=== PATIENT | male | born 1975 | race Caucasian/White ===

== ENCOUNTER 2017-05-07 18:09 | Emergency (ER) | payer OTHER ==
[2017-05-07 18:24] VITALS: BP 156/94; PULSE 75; RESP 18; TEMP 99; O2SAT 96
--- NOTE | 2017-05-07 20:04 | C.PDOC ---
History Of Present Illness 41 year old male presents to the ED with complaints of right foot swelling for one week. Patient notes pain with ambulation and history of fractures to the right foot. He states he took off his cast at 2 months opposed to waiting 6 months as he was instructed. Patient denies changes in sensation, fever, or recent trauma. Time Seen by Provider: 05/07/17 18:34 Chief Complaint (Nursing): Lower Extremity Problem/Injury History Per: Patient History/Exam Limitations: no limitations Onset/Duration Of Symptoms: Intermittent Episodes, Persistent (1 week ) Current Symptoms Are (Timing): Still Present Recent travel outside of the [place]: No Additional History Per: Prior Records Past Medical History Reviewed: Historical Data, Nursing Documentation, Vital Signs Vital Signs: Last Vital Signs Temp 99 F 05/07/17 18:18 Pulse 75 05/07/17 18:18 Resp 18 05/07/17 18:18 BP 156/94 H 05/07/17 18:18 Pulse Ox 96 05/07/17 22:08 - Medical History PMH: Asthma, Atrial Fibrillation, Diabetes, HTN Family History: States: Unknown Family Hx - Social History Hx Tobacco Use: No Hx Alcohol Use: No Hx Substance Use: No - Immunization History Hx Tetanus Toxoid Vaccination: No Hx Influenza Vaccination: No Hx Pneumococcal Vaccination: No Review Of Systems Constitutional: Negative for: Fever, Chills Cardiovascular: Negative for: Chest Pain Respiratory: Negative for: Shortness of Breath Gastrointestinal: Negative for: Nausea Musculoskeletal: Positive for: Foot Pain (right foot pain ) Neurological: Negative for: Weakness, Numbness Physical Exam - Physical Exam Appears: Non-toxic, No Acute Distress Skin: Warm, Dry Head: Atraumatic Eye(s): bilateral: Normal Inspection, EOMI Oral Mucosa: Moist Neck: Supple Chest: Symmetrical Respiratory: No Accessory Muscle Use Extremity: Normal ROM, Tenderness (diffuse tenderness of the right foot, no erythema ), No Calf Tenderness, Capillary Refill (good capillar refill, less than 2 seconds ), Swelling (diffuse swelling of the right foot ) Pulses: Left Dorsalis Pedis: Normal, Right Dorsalis Pedis: Normal Neurological/Psych: Oriented x3, Normal Speech, Normal Cognition, Normal Motor, Normal Sensation Gait: Steady ED Course And Treatment O2 Sat by Pulse Oximetry: 96 (room air ) - Other Rad Right foot X-Ray X-Ray: Interpreted by Me, Viewed By Me Interpretation: No fracture or dislocation. 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 Patient's girlfriend notes patient will be seen by Dr. Kellogg tomorrow. Patient was instructed to return to ED if symptoms persist or worsen. Disposition - Disposition Disposition: HOME/ ROUTINE Disposition Time: 20:03 Condition: STABLE Additional Instructions: Follow up with primary medical doctor in 1-3 days without fail for further evaluation. Take medications as prescribed. Return to the emergency department at any time if symptoms persist or worsen. Prescriptions: Naproxen [Naprosyn] 1 tab PO BID PRN #20 tab PRN Reason: Pain Instructions: Foot Sprain (ED) Forms: [employer] (Setswana) - Clinical Impression Clinical Impression: Right foot strain - Scribe Statement The provider has reviewed the documentation as recorded by the Scribalejo Ventura All medical record entries made by the Scribe were at my direction and personally dictated by me. I have reviewed the chart and agree that the record accurately reflects my personal performance of the history, physical exam, medical decision making, and the department course for this patient. I have also personally directed, reviewed, and agree with the discharge instructions and disposition.
--- NOTE | 2017-05-08 08:24 | RAD ---
PROCEDURE: Right Foot Radiographs. HISTORY: pain COMPARISON: None. FINDINGS: BONES: Normal. No fracture. JOINTS: Normal. SOFT TISSUES: Ossification of insertion of the Achilles tendon at the posterior calcaneus is noted. OTHER FINDINGS: Moderate plantar calcaneal spur. IMPRESSION: No acute fracture or dislocation.
== END 2017-05-07 20:31 | disposition home or self-care (01) ==
LOC: C.ER 18:09
DX: S96.911A Strain of unspecified muscle and tendon at ankle and foot level, right foot, initial encounter (principal); X58.XXXA Exposure to other specified factors, initial encounter
CPT/HCPCS: 29515; 73630; 96372; 99285; J1885

== ENCOUNTER 2017-05-26 22:06 | Emergency (ER) | payer OTHER ==
[2017-05-26 22:27] VITALS: TEMP 99.7
[2017-05-26] MEDS ORDERED: Aspirin 325 mg EC Tablets PO STA (22:33)
[2017-05-26 23:13] LABS: BASO # 0.1 K/uL (0.0-0.2); BASO % 0.7 % (0.0-2.0); EOS # 0.1 K/uL (0.0-0.7); HEMATOCRIT 42.6 % (35.0-51.0); LYMPH # 3.3 K/uL (1.0-4.3); LYMPH % 35.1 % (20.0-40.0); MEAN CELL VOLUME 81.5 fL (80.0-94.0); MEAN CORPUSCULAR HEMOGLOBIN 27.2 pg (27.0-31.0); MEAN CORPUSCULAR HGB CONC 33.4 g/dL (33.0-37.0); MONO # 0.7 K/uL (0.0-0.8); MONO % 7.9 % (0.0-10.0); RED CELL DISTRIBUTION WIDTH 14.6 % (11.5-14.5); WHITE BLOOD COUNT 9.5 K/uL (4.8-10.8)
[2017-05-26 23:23] LABS: CHLORIDE 105 mmol/L (98-107); SODIUM 144 mmol/L (132-148)
[2017-05-26] MEDS ORDERED: Aspirin 325 mg EC Tablets PO ONE (23:23)
[2017-05-26 23:24] LABS: POTASSIUM 3.4 mmol/L (3.6-5.2)
[2017-05-26 23:25] LABS: GFR AFRICAN-AMERICAN > 60
[2017-05-26 23:26] LABS: ALB/GLOB RATIO 1.1 (1.0-2.1); ALKALINE PHOSPHATASE 91 U/L (38-126); ALT/SGPT 24 U/L (21-72); AST/SGOT 21 U/L (17-59); BILIRUBIN,TOTAL 0.8 mg/dL (0.2-1.3); BLOOD UREA NITROGEN 14 mg/dL (9-20); CARBON DIOXIDE 25 mmol/L (22-30); GLUCOSE,RANDOM 120 mg/dL (75-110); TOTAL PROTEIN 7.3 g/dL (6.3-8.3)
[2017-05-26 23:27] LABS: CALCIUM 9.2 mg/dl (8.6-10.4)
--- NOTE | 2017-05-26 23:52 | C.PDOC ---
History Of Present Illness Pt c/o left upper chest/left shoulder region pain that started after moving furniture yesterday. Time Seen by Provider: 05/26/17 22:18 Chief Complaint (Nursing): Chest Pain History Per: Patient, Family Onset/Duration Of Symptoms: Days (1) Current Symptoms Are (Timing): Still Present Context: Other (After moving furniture) Severity: Moderate Quality: "Pain" Modifying Factors: Other Indicated Below Exacerbating Factors: Turning, Movement Additional History Per: Prior Records Past Medical History Reviewed: Historical Data, Nursing Documentation, Vital Signs Vital Signs: Last Vital Signs Temp 99.7 F H 05/26/17 22:26 Pulse 79 05/26/17 22:26 Resp 18 05/26/17 22:26 BP 161/90 H 05/26/17 22:26 Pulse Ox 98 05/26/17 22:26 - Medical History PMH: Asthma, Atrial Fibrillation, Diabetes, HTN, Hypercholesterolemia Surgical History: Pacemaker (AICD) Family History: States: Unknown Family Hx - Social History Hx Tobacco Use: No Hx Alcohol Use: No Hx Substance Use: No - Immunization History Hx Tetanus Toxoid Vaccination: No Hx Influenza Vaccination: No Hx Pneumococcal Vaccination: No Review Of Systems Except As Marked, All Systems Reviewed And Found Negative. Constitutional: Negative for: Fever, Weakness Cardiovascular: Negative for: Palpitations, Light Headedness Respiratory: Negative for: Hemoptysis Gastrointestinal: Negative for: Vomiting, Abdominal Pain Musculoskeletal: Positive for: Shoulder Pain (left), Arm Pain (left). Negative for: Neck Pain, Back Pain Skin: Negative for: Rash Neurological: Negative for: Weakness, Numbness Physical Exam - Physical Exam Appears: Non-toxic, No Acute Distress Skin: Normal Color, Warm, Dry, No Rash Head: Atraumatic, Normacephalic Eye(s): bilateral: Normal Inspection, PERRL, EOMI Neck: Normal ROM, Supple Chest: No Deformity, Tenderness (left upper chest wall), No Ecchymosis, No Subcutaneous Emphysema Cardiovascular: Rhythm Regular Respiratory: Normal Breath Sounds, No Accessory Muscle Use Gastrointestinal/Abdominal: Soft, No Tenderness Back: Normal Inspection, No CVA Tenderness Extremity: Normal ROM, Tenderness (left shoulder region), No Deformity, No Swelling Extremity: Bilateral: Normal Color And Temperature Pulses: Left Radial: Normal Neurological/Psych: Oriented x3, Normal Motor, Normal Sensation ED Course And Treatment - Laboratory Results Result Diagrams: 05/26/17 23:09 05/26/17 23:09 Lab Interpretation: No Acute Changes ECG: Interpreted By Me, Viewed By Me ECG Rhythm: Sinus Rhythm ECG Interpretation: No Acute Changes Rate From EC O2 Sat by Pulse Oximetry: 98 Pulse Ox Interpretation: Normal - Radiology CXR: Interpreted by Me, Viewed By Me CXR Interpretation: Yes: No Acute Disease, Other (AICD in place) Progress Note: Pt feels much better and wants to go home. Reassessment Condition: Improved Progress - Interventions Interventions:: Observation - Medications Administered Oral: Acetaminophen, Aspirin - Data Reviewed Data Reviewed: Lab, Diagnostic imaging, EKG, Old records - Patient Status Patient status: Mostly improved - Continuity of Care Discussed patient case with:: Patient, Family-HIPPA compliant, ED Nurse - Patient Plan Patient Plan: Discharge, F/U with PCP, Continue present meds Disposition Counseled Patient/Family Regarding: Studies Performed, Diagnosis, Need For Followup, Rx Given - Disposition Referrals: Nick Neal MD [Medical Doctor] - Le Crenshaw MD [Staff Provider] - Disposition: HOME/ ROUTINE Disposition Time: 23:54 Condition: IMPROVED Additional Instructions: Follow up with your doctor this week. Return to the ER if you develop dizziness , shortness of breath, nausea, cold sweats, worsening of symptoms or if you have any other concerns. Prescriptions: Acetaminophen [Tylenol Extra Strength] 2 tab PO Q6 PRN #30 tablet PRN Reason: Pain, Moderate (4-7) Instructions: Chest Wall Pain (ED) Forms: [employer] (Afghan) Print Language: GEORGIAN - Clinical Impression Clinical Impression: Pain of left shoulder region
[2017-05-27 00:03] VITALS: BP 140/80; PULSE 70; RESP 14; O2SAT 97
--- NOTE | 2017-05-27 12:21 | RAD ---
HISTORY: Left upper chest/shoulder pain COMPARISON: Chest x-ray portion of obstructive series performed 12/04/15 TECHNIQUE: Chest, one view. FINDINGS: Examination limited by habitus and hypoinflation. LUNGS: No focal consolidation. Please note that chest x-ray has limited sensitivity for the detection of pulmonary masses. PLEURA: No significant pleural effusion identified. No definite pneumothorax . CARDIOVASCULAR: Single lead left-sided AICD. Cardiomegaly. OSSEOUS STRUCTURES: Mild degenerative changes. VISUALIZED UPPER ABDOMEN: Unremarkable. OTHER FINDINGS: None. IMPRESSION: Single lead left-sided AICD. Cardiomegaly.
--- NOTE | 2017-06-04 18:59 | CARD ---
APPROVED REPORT EKG Measurement Heart [id number] <Conclusion> Normal sinus rhythm Normal ECG
== END 2017-05-27 00:02 | disposition home or self-care (01) ==
LOC: C.ER 22:06
DX: M25.512 Pain in left shoulder (principal)

== ENCOUNTER 2017-09-16 18:27 | Emergency (ER) | payer OTHER ==
[2017-09-16 19:57] LABS: BASO # 0.1 K/uL (0.0-0.2); BASO % 0.6 % (0.0-2.0); EOS # 0.1 K/uL (0.0-0.7); EOS % 1.4 % (0.0-4.0); LYMPH # 3.2 K/uL (1.0-4.3); LYMPH % 32.6 % (20.0-40.0); MEAN CORPUSCULAR HEMOGLOBIN 27.3 pg (27.0-31.0); MEAN CORPUSCULAR HGB CONC 34.1 g/dL (33.0-37.0); MEAN PLATELET VOLUME 8.7 fL (7.2-11.7); MONO # 0.7 K/uL (0.0-0.8); MONO % 6.7 % (0.0-10.0); NRBC % 0.1 % (0.0-2.0); RED CELL DISTRIBUTION WIDTH 14.5 % (11.5-14.5); WHITE BLOOD COUNT 9.8 K/uL (4.8-10.8)
[2017-09-16] MEDS ORDERED: Sodium Chloride 0.9% 1,000 ML IV ONE (19:58)
[2017-09-16] MEDS ORDERED: Sodium Chloride 0.9% 1,000 ML ONE (20:07)
[2017-09-16 20:09] LABS: ALB/GLOB RATIO 1.3 (1.0-2.1); ALKALINE PHOSPHATASE 91 U/L (38-126); ALT/SGPT 23 U/L (21-72); AST/SGOT 22 U/L (17-59); BILIRUBIN,TOTAL 1.2 mg/dL (0.2-1.3); BLOOD UREA NITROGEN 15 mg/dL (9-20); CARBON DIOXIDE 28 mmol/L (22-30); CHLORIDE 96 mmol/L (98-107); GFR AFRICAN-AMERICAN > 60; GLUCOSE,RANDOM 115 mg/dL (75-110); POTASSIUM 3.9 mmol/L (3.6-5.2); SODIUM 134 mmol/L (132-148)
[2017-09-16 20:26] LABS: ALCOHOL SERUM < 10 mg/dl (0-10)
[2017-09-16 20:40] LABS: RBC URINE < 1 /hpf (0-3); URINE BACTERIA RARE (<OCC); URINE BILIRUBIN NEGATIVE (NEGATIVE); URINE BLOOD NEGATIVE (NEGATIVE); URINE COLOR Yellow (YELLOW); URINE GLUCOSE (UA) NORMAL (Normal); URINE HYALINE CAST 0-2 /lpf (0-2); URINE KETONE NEGATIVE (NEGATIVE); URINE LEUKOCYTE ESTERASE NEG Leu/uL (Negative); URINE PROTEIN NEGATIVE (NEGATIVE); WBC URINE < 1 /hpf (0-5)
--- NOTE | 2017-09-16 21:04 | C.PDOC ---
History Of Present Illness Patient is a 42 y/o mentally disabled male who presents to the ED with complaints of minor dizziness and chronic crampy abdominal discomfort. Patient admits to not eating much, adding he takes DM medication on an empty stomach. Patient denies checking blood pressure at home. No other physical complaints at this time. Time Seen by Provider: 09/16/17 19:21 Chief Complaint (Nursing): Abdominal Pain History Per: Patient History/Exam Limitations: no limitations Onset/Duration Of Symptoms: Hrs Current Symptoms Are (Timing): Still Present Location Of Pain/Discomfort: Diffuse Quality Of Discomfort: Cramping Recent travel outside of the [place]: No Past Medical History Reviewed: Historical Data, Nursing Documentation, Vital Signs Vital Signs: Last Vital Signs Temp 98.3 F 09/16/17 21:20 Pulse 76 09/16/17 21:20 Resp 20 09/16/17 21:20 BP 160/90 H 09/16/17 21:20 Pulse Ox 97 09/16/17 21:20 - Medical History PMH: Asthma, Atrial Fibrillation, Diabetes, HTN, Hypercholesterolemia Surgical History: Pacemaker (AICD) Family History: States: Unknown Family Hx - Social History Hx Tobacco Use: No Hx Alcohol Use: No Hx Substance Use: No - Immunization History Hx Tetanus Toxoid Vaccination: No Hx Influenza Vaccination: No Hx Pneumococcal Vaccination: No Review Of Systems Gastrointestinal: Positive for: Abdominal Pain (cramping) Neurological: Positive for: Altered Mental Status (mentally disabled), Dizziness (minor) Physical Exam - Physical Exam Appears: Other (obese, flat affect) Oral Mucosa: Moist Chest: Symmetrical Cardiovascular: Rhythm Regular, No Murmur Respiratory: Normal Breath Sounds, No Rales, No Rhonchi, No Wheezing Gastrointestinal/Abdominal: Soft, No Tenderness, Other (obese) Neurological/Psych: Slow To Respond With Command (and questions) ED Course And Treatment - Laboratory Results Result Diagrams: 09/16/17 19:54 09/16/17 19:54 Lab Interpretation: Normal (normal glu) ECG: Interpreted By Me ECG Rhythm: Sinus Rhythm ECG Interpretation: Normal Rate From EC O2 Sat by Pulse Oximetry: 96 (room air) Pulse Ox Interpretation: Normal - Radiology CXR: Interpreted by Me CXR Interpretation: Yes: No Acute Disease - Other Rad abd x 2 X-Ray: Interpreted by Me (normal stool/gas pattern) Progress Note: pepcid, meclizine, IVF- no insulin as glu wnl. Obstructive series XR ordered. Reevaluation Time: 21:06 Reassessment Condition: Improved Medical Decision Making Medical Decision Making: chronic constipation pt taking Metformin without eating, educated how this will make him feel dizzy/ sick and to always eat with DM meds diet and exercise educated. Disposition Doctor Will See Patient In The: Office Counseled Patient/Family Regarding: Studies Performed, Diagnosis - Disposition Referrals: Melvina Dennis MD [Medical Doctor] - Disposition: HOME/ ROUTINE Disposition Time: 21:08 Condition: GOOD Additional Instructions: always take your diabetes meds with food Check your finger-stick before breakfast and dinner and write it down in the little book. Pepcid 20 mg @ night to help prevent gastritis Follow-up with your PMD as needed. Prescriptions: Famotidine [Pepcid] 20 mg PO HS #30 tab Instructions: Gas and Bloating (ED), Dizziness (ED) Forms: [employer] (Georgian) - Clinical Impression Clinical Impression: Abdominal discomfort, Dizziness - Scribe Statement The provider has reviewed the documentation as recorded by the Scribe Rosa Kumar All medical record entries made by the Scribe were at my direction and personally dictated by me. I have reviewed the chart and agree that the record accurately reflects my personal performance of the history, physical exam, medical decision making, and the department course for this patient. I have also personally directed, reviewed, and agree with the discharge instructions and disposition.
[2017-09-16 21:21] VITALS: BP 160/90; PULSE 76; RESP 20; TEMP 98.3
[2017-09-16 23:10] VITALS: O2SAT 96
--- NOTE | 2017-09-17 10:00 | RAD ---
PROCEDURE: Radiographs of the chest and abdomen (obstructive series) HISTORY: abd pain COMPARISON: 12/04/2015 obstructive series TECHNIQUE: AP radiograph of the chest, with upright and supine radiographs of the abdomen. FINDINGS: CHEST: Lungs: Clear. Cardiovascular: Mild cardiomegaly appears Position/ configuration of pacemaker congestion. Pleura: No pleural fluid. No pneumothorax. Other findings: None. ABDOMEN AND PELVIS: Bowel: The prior dilated sigmoid loop there is no longer seen as such. A redundant rectosigmoid colon loops is also a consideration. Left and right stool retention suggested. . No evidence of mechanical obstruction. Free air: None. Bones: Bilateral L4-5 and L5-S1 mild arthrosis. Bilateral mild sclerotic SI joint arthrosis. Bilateral superolateral hip joint space narrowing and left greater than right. Probable bone island projecting over the left inferior medial femoral [id number] Other findings: None. IMPRESSION: No pulmonary infiltrate. Mild cardiomegaly with pacemaker No evidence of mechanical bowel obstruction. Left and right stool retention -can be seen with a clinical constipation.
== END 2017-09-16 21:22 | disposition home or self-care (01) ==
LOC: C.ER 18:27
DX: R42 Dizziness and giddiness (principal); R10.9 Unspecified abdominal pain; E11.9 Type 2 diabetes mellitus without complications; E78.00 Pure hypercholesterolemia, unspecified; I10 Essential (primary) hypertension; I48.91 Unspecified atrial fibrillation
CPT/HCPCS: 74022; 80053; 80320; 80324; 80345; 80346; 80349; 80353; 80358; 80361; 81001; 83690; 83992; 84484; 85025; 96361; 96374; 99284; J7040

== ENCOUNTER 2017-09-28 14:47 | Emergency (ER) | payer OTHER ==
[2017-09-28 16:34] VITALS: BP 162/98; PULSE 83; RESP 20; TEMP 97.9
--- NOTE | 2017-09-28 16:36 | C.PDOC ---
History Of Present Illness 42 yo male c/o right knee pain since 09/20/17 when he bumped it against a metal pole. Pt note pain worse with movement. No change in sensation. No calf pain, no leg swelling, no SOB. Pt has a h/o elevated bP and notes he is complaint with the medication. Time Seen by Provider: 09/28/17 15:34 Chief Complaint (Nursing): Lower Extremity Problem/Injury History Per: Patient History/Exam Limitations: no limitations Onset/Duration Of Symptoms: Days Current Symptoms Are (Timing): Still Present Past Medical History Vital Signs: Last Vital Signs Temp 98.9 F 09/28/17 14:52 Pulse 90 09/28/17 14:52 Resp 18 09/28/17 14:52 BP 192/127 H 09/28/17 14:52 Pulse Ox 96 09/28/17 14:52 - Medical History PMH: Asthma, Atrial Fibrillation, Diabetes, HTN, Hypercholesterolemia Surgical History: Pacemaker (AICD) Family History: States: Unknown Family Hx - Social History Hx Tobacco Use: No Hx Alcohol Use: No Hx Substance Use: No - Immunization History Hx Tetanus Toxoid Vaccination: No Hx Influenza Vaccination: No Hx Pneumococcal Vaccination: No Review Of Systems Constitutional: Negative for: Fever Respiratory: Negative for: Shortness of Breath Neurological: Negative for: Weakness, Numbness Physical Exam - Physical Exam Appears: Well, Non-toxic, No Acute Distress Skin: Normal Color, Warm, Dry Head: Atraumatic, Normacephalic Eye(s): bilateral: Normal Inspection, EOMI Nose: Normal Oral Mucosa: Moist Neck: Normal, Normal ROM, Supple Chest: Symmetrical Cardiovascular: Rhythm Regular Respiratory: Normal Breath Sounds Gastrointestinal/Abdominal: Normal Exam Back: Normal Inspection Extremity: Normal ROM, Tenderness (diffuse anterior knee tendenress), No Calf Tenderness, Capillary Refill (<2 sec), Swelling Extremity: Bilateral: Atraumatic, Normal Color And Temperature, Normal ROM Pulses: Left Dorsalis Pedis: Normal, Right Dorsalis Pedis: Normal Neurological/Psych: Oriented x3, Normal Speech, Normal Motor, Normal Sensation Gait: With Assistance (pt walks with cane, notes he wsa using to prior ti injury ) ED Course And Treatment O2 Sat by Pulse Oximetry: 96 - Other Rad Knee XR X-Ray: Interpreted by Me, Viewed By Me Interpretation: no fx or dislocated Progress Note: Pt is asymptomatic regarding elevated BP, no chest pain, sob, headache ,dizziness. Instructed to follow up with PMD regarding elevated BP for possible medication adjustment. Instructed to follo wup with ortho in 1-2 days for re-evaluation. Disposition - Disposition Referrals: Baldev Lutz MD [Staff Provider] - Disposition: HOME/ ROUTINE Disposition Time: 16:42 Condition: STABLE Instructions: Knee Sprain (ED)
[2017-09-28 16:37] VITALS: O2SAT 96
--- NOTE | 2017-09-28 17:30 | RAD ---
PROCEDURE: Left Knee Radiographs. HISTORY: Pain. COMPARISON: None. FINDINGS: BONES: Normal. No fracture. JOINTS: Normal. No osteoarthritis. JOINT EFFUSION: Possible small suprapatellar joint effusion P OTHER FINDINGS: None. IMPRESSION: No evidence of acute fracture or dislocation.
== END 2017-09-28 16:52 | disposition home or self-care (01) ==
LOC: C.ER 14:47
DX: S80.01XA Contusion of right knee, initial encounter (principal); W22.8XXA Striking against or struck by other objects, initial encounter; E11.9 Type 2 diabetes mellitus without complications; E78.00 Pure hypercholesterolemia, unspecified; I10 Essential (primary) hypertension; I48.91 Unspecified atrial fibrillation
CPT/HCPCS: 73562; 96372; 99284; J1885

== ENCOUNTER 2017-11-26 11:39 | Emergency (ER) | payer OTHER ==
[2017-11-26 12:09] VITALS: BP 155/101; PULSE 82; RESP 16; TEMP 97.3; O2SAT 97
--- NOTE | 2017-11-26 12:55 | C.PDOC ---
History Of Present Illness 42 y/o male with htn, dm, aicd, c/o left knee pain since last Sun after banging it against something. pt taking 400 mg advil bid with no improvement. pt reports that he has chronic pain in this knee and hasn't follow up with orthopedics. no numbness or tingling. Time Seen by Provider: 11/26/17 12:36 Chief Complaint (Nursing): Lower Extremity Problem/Injury Past Medical History Vital Signs: Last Vital Signs Temp 97.3 F L 11/26/17 12:06 Pulse 82 11/26/17 12:06 Resp 16 11/26/17 12:06 BP 155/101 H 11/26/17 12:06 Pulse Ox 97 11/26/17 13:45 - Medical History PMH: Asthma, Atrial Fibrillation, Diabetes, HTN, Hypercholesterolemia Surgical History: Pacemaker (AICD) Family History: States: Unknown Family Hx - Social History Hx Tobacco Use: No Hx Alcohol Use: No Hx Substance Use: No - Immunization History Hx Tetanus Toxoid Vaccination: No Hx Influenza Vaccination: No Hx Pneumococcal Vaccination: No Physical Exam - Physical Exam Appears: Non-toxic, No Acute Distress Skin: Warm, Dry Extremity: Tenderness (left lateral proximal knee, painful rom. ), No Pedal Edema, No Calf Tenderness Pulses: Left Dorsalis Pedis: Normal Neurological/Psych: Oriented x3, Normal Speech, Normal Cognition, Normal Motor, Normal Sensation ED Course And Treatment O2 Sat by Pulse Oximetry: 97 - Other Rad left knee X-Ray: Read By Radiologist Medical Decision Making Medical Decision Making: hx chronic knee pain with new contusion;l give motrin, xray neg. pt has knee support. d/c with contusion. f/u orthopedics. Disposition Counseled Patient/Family Regarding: Studies Performed, Diagnosis, Need For Followup, Rx Given - Disposition Referrals: Fazal Mohamud III, MD [Staff Provider] - Disposition: HOME/ ROUTINE Disposition Time: 13:41 Condition: GOOD Additional Instructions: Por favor, tome ibuprofeno o Tylenol para el dolor. Compresas fras bebeto 15 minutos a veces, 4 veces al da. Use rodillera para apoyo. Por favor cecilia un seguimiento en ortopedia con el Dr. Mohamud o el mdico ortopdico de carbajal elecci n. Please take ibuprofen or Tylenol for pain. Cold compresses for 15 minutes at a times, 4 times a day. Wear knee brace for support. Please follow up in orthopedics with Dr Mohamud or the orthpedic doctor of your choice Prescriptions: Acetaminophen [Tylenol 325mg tab] 650 mg PO Q4 #50 tab Forms: [facility] [employer] [facility] Malawian, [employer] (Malawian) Print Language: SERBIAN - Clinical Impression Clinical Impression: Left knee injury
--- NOTE | 2017-11-26 13:26 | RAD ---
PROCEDURE: Left Knee Radiographs. HISTORY: Hit COMPARISON: Left knee radiographs performed 09/28/17 FINDINGS: BONES: No acute displaced fracture. Degenerative changes including prominent superior and inferior patellar enthesophyte. JOINTS: No dislocation. JOINT EFFUSION: No significant joint effusion. OTHER FINDINGS: None. IMPRESSION: No acute displaced fracture, dislocation, or significant joint effusion identified. If symptoms persist, or if there is continued clinical concern, x-ray follow-up in 7-10 days should be considered.
== END 2017-11-26 13:59 | disposition home or self-care (01) ==
LOC: C.ER 11:39
DX: S89.92XA Unspecified injury of left lower leg, initial encounter (principal); W22.8XXA Striking against or struck by other objects, initial encounter

== ENCOUNTER 2017-12-16 15:20 | Emergency (ER) | payer OTHER ==
[2017-12-16 16:59] LABS: WHITE BLOOD COUNT 9.1 K/uL (4.8-10.8)
[2017-12-16 17:02] LABS: BASO % 0.4 % (0.0-2.0); EOS # 0.1 K/uL (0.0-0.7); EOS % 1.2 % (0.0-4.0); LYMPH # 2.7 K/uL (1.0-4.3); LYMPH % 29.7 % (20.0-40.0); MEAN CELL VOLUME 80.7 fL (80.0-94.0); MEAN CORPUSCULAR HEMOGLOBIN 27.4 pg (27.0-31.0); MEAN PLATELET VOLUME 8.8 fL (7.2-11.7); MONO # 0.7 K/uL (0.0-0.8); MONO % 7.1 % (0.0-10.0); NEUT # 5.6 K/uL (1.8-7.0); NEUT % 61.6 % (50.0-75.0); NRBC % 0.2 % (0.0-2.0); RBC 5.82 Mil/uL (4.40-5.90); RED CELL DISTRIBUTION WIDTH 14.1 % (11.5-14.5)
[2017-12-16 17:20] LABS: ALBUMIN 4.4 g/dL (3.5-5.0); ALT/SGPT 28 U/L (21-72); AST/SGOT 29 U/L (17-59); BLOOD UREA NITROGEN 16 mg/dL (9-20); CALCIUM 9.4 mg/dl (8.6-10.4); GFR AFRICAN-AMERICAN > 60; GFR NON-AFRICAN AMERICAN > 60
[2017-12-16 17:32] LABS: B-TYPE NATRIURETIC PEPTIDE 207 pg/mL (0-450)
--- NOTE | 2017-12-16 17:34 | RAD ---
PROCEDURE: CHEST RADIOGRAPH, 1 VIEW HISTORY: chest pain COMPARISON: 05/26/2017 FINDINGS: LUNGS: Clear. PLEURA: No pneumothorax or pleural fluid seen. CARDIOVASCULAR: Normal heart size. Permanent pacemaker. OSSEOUS STRUCTURES: No significant abnormalities. VISUALIZED UPPER ABDOMEN: Normal. OTHER FINDINGS: None. IMPRESSION: No active disease.
[2017-12-16 17:55] VITALS: BP 119/76; PULSE 80; RESP 18; TEMP 98; O2SAT 100
--- NOTE | 2017-12-16 18:25 | C.PDOC ---
History Of Present Illness 42-year-old male, PMHx includes cardiomyopathy and AICD placement, presents to the emergency department with complaints of five-day duration of intermittent pain to the left upper chest wall, over AICD device. Initially, patient states pain felt like "fleeting jolts" but is now described as an "achy" sensation. Denies nausea/vomiting, diarrhea, fevers, chills, shortness of breath, dizziness , ro any other associated symptoms. No other complaints at this time. Time Seen by Provider: 12/16/17 15:50 Chief Complaint (Nursing): Chest Pain History Per: Patient History/Exam Limitations: no limitations Onset/Duration Of Symptoms: Days Current Symptoms Are (Timing): Still Present Past Medical History Reviewed: Historical Data, Nursing Documentation, Vital Signs Vital Signs: Last Vital Signs Temp 98 F 12/16/17 17:53 Pulse 80 12/16/17 17:53 Resp 18 12/16/17 17:53 BP 119/76 12/16/17 17:53 Pulse Ox 100 12/16/17 18:38 - Medical History PMH: Asthma, Atrial Fibrillation, CHF, Diabetes, HTN, Hypercholesterolemia Surgical History: Pacemaker (AICD) Family History: States: No Known Family Hx - Social History Hx Tobacco Use: No Hx Alcohol Use: No Hx Substance Use: No - Immunization History Hx Tetanus Toxoid Vaccination: No Hx Influenza Vaccination: Yes Hx Pneumococcal Vaccination: No Review Of Systems Constitutional: Negative for: Fever, Chills Cardiovascular: Positive for: Chest Pain. Negative for: Palpitations, Edema, Light Headedness Respiratory: Negative for: Cough, Shortness of Breath Gastrointestinal: Negative for: Nausea, Vomiting Skin: Negative for: Rash Neurological: Negative for: Weakness, Numbness, Headache, Dizziness Physical Exam - Physical Exam Appears: Non-toxic, No Acute Distress Skin: Normal Color, Warm, Dry, No Rash Head: Normacephalic Eye(s): bilateral: PERRL Nose: Normal Oral Mucosa: Moist Lips: Normal Appearing Neck: Normal ROM Chest: Symmetrical Cardiovascular: Rhythm Regular, No Murmur Respiratory: Normal Breath Sounds, No Accessory Muscle Use Gastrointestinal/Abdominal: Soft, No Tenderness Extremity: Normal ROM, No Deformity, No Swelling Neurological/Psych: Oriented x3, Normal Speech ED Course And Treatment - Laboratory Results Result Diagrams: 12/16/17 16:54 12/16/17 16:54 O2 Sat by Pulse Oximetry: 100 Medical Decision Making Medical Decision Making: Impression 42y/o M comes in w? left chest pain x5 days over AICD device. Plan: * EKG * Bloodwork * Chest X-Ray * Reassess and Disposition EKG Interpreted/viewed by ED physician Rate 75bpm Rhythm NSR Intepret No ST elevations/depressions. Normal intervals/axis Case was discussed with Dr Engle, states he will admit patient to his service. Disposition Discussed With Dr.: Moisés Engle Jr. - Disposition Disposition: ELOPEMENT - ER ONLY Disposition Time: 18:24 Condition: GUARDED Forms: [employer] (Indian) - Clinical Impression Clinical Impression: Chest pain, ICD (implantable cardioverter-defibrillator) malfunction Decision To Admit - Pt Status Changed To: Hospital Disposition Of: Observation - . Bed Request Type: Telemetry Admitting Physician: Moisés Engle Jr. Patient Diagnosis: Chest pain, ICD (implantable cardioverter-defibrillator) malfunction
--- NOTE | 2017-12-16 22:43 | CP.PCM.PN ---
<Karin Porter - Last Filed: 12/16/17 22:42> Subjective - Date & Time of Evaluation Date of Evaluation: 12/16/17 Time of Evaluation: 07:30 - Subjective Subjective: Nurse called house doctor that the patient eloped. Patient was not seen by house doctor before leaving. Objective - Vital Signs/Intake and Output Vital Signs (last 24 hours): Temp Pulse Resp BP Pulse Ox 98 F 80 18 119/76 100 12/16/17 17:53 12/16/17 17:53 12/16/17 17:53 12/16/17 17:53 12/16/17 20:20 - Labs Labs: 12/16/17 16:54 12/16/17 16:54 <Moisés Engle Jr. - Last Filed: 12/21/17 15:45> Objective - Vital Signs/Intake and Output Vital Signs (last 24 hours): Temp Pulse Resp BP Pulse Ox 98 F 80 18 119/76 100 12/16/17 17:53 12/16/17 17:53 12/16/17 17:53 12/16/17 17:53 12/16/17 20:20 - Labs Labs: 12/16/17 16:54 12/16/17 16:54 Attending/Attestation - Attestation I have personally seen and examined this patient.: Yes I have fully participated in the care of the patient.: Yes I have reviewed all pertinent clinical information, including history, physical exam and plan: Yes Notes (Text): 12/21/17 15:45 Agree with resident note and plan of care
--- NOTE | 2017-12-18 22:24 | CARD ---
APPROVED REPORT EKG Measurement Heart [id number] <Conclusion> Normal sinus rhythm Possible Left atrial enlargement Borderline ECG
== END 2017-12-16 19:35 | disposition left against medical advice (07) ==
LOC: C.ER 15:20 → C.6T 18:25 → C.9E 18:25 → UNDOADMOB 18:25 → C.ER 19:35
DX: T82.118A Breakdown (mechanical) of other cardiac electronic device, initial encounter (principal); Y84.8 Other medical procedures as the cause of abnormal reaction of the patient, or of later complication, without mention of misadventure at the time of the procedure; R07.9 Chest pain, unspecified

== ENCOUNTER 2017-12-25 10:11 | Emergency (ER) | payer OTHER ==
[2017-12-25] MEDS ORDERED: Sodium Chloride 0.9% 1,000 ML IV ONE (11:04)
[2017-12-25] MEDS ORDERED: Sodium Chloride 0.9% 1,000 ML ONE (11:32)
[2017-12-25 11:45] LABS: BASO # 0.1 K/uL (0.0-0.2); BASO % 0.9 % (0.0-2.0); EOS # 0.2 K/uL (0.0-0.7); HEMOGLOBIN 15.1 g/dL (12.0-18.0); LYMPH # 2.6 K/uL (1.0-4.3); LYMPH % 28.8 % (20.0-40.0); MEAN CELL VOLUME 80.7 fL (80.0-94.0); MEAN CORPUSCULAR HEMOGLOBIN 27.7 pg (27.0-31.0); MEAN CORPUSCULAR HGB CONC 34.4 g/dL (33.0-37.0); MEAN PLATELET VOLUME 8.4 fL (7.2-11.7); MONO # 0.6 K/uL (0.0-0.8); MONO % 6.3 % (0.0-10.0); NEUT # 5.5 K/uL (1.8-7.0); NRBC % 0.1 % (0.0-2.0); RBC 5.43 Mil/uL (4.40-5.90); RED CELL DISTRIBUTION WIDTH 14.6 % (11.5-14.5); WHITE BLOOD COUNT 8.9 K/uL (4.8-10.8)
[2017-12-25 11:58] LABS: ALB/GLOB RATIO 1.1 (1.0-2.1); ALBUMIN 4.4 g/dL (3.5-5.0); ALT/SGPT 26 U/L (21-72); AST/SGOT 27 U/L (17-59); BLOOD UREA NITROGEN 16 mg/dL (9-20); CALCIUM 9.2 mg/dl (8.6-10.4); GFR AFRICAN-AMERICAN > 60; GFR NON-AFRICAN AMERICAN > 60; LIPASE 70 U/L (23-300)
--- NOTE | 2017-12-25 12:30 | C.PDOC ---
History Of Present Illness 42 y/o male presents to the ER complaining of epigastric abdominal pain, nausea , vomiting, and diarrhea which has been present for the past 3 days. Patient states that the symptoms began after he ate old canned food. He denies fever, CP , SOB, cough, body aches, dysuria/hematuria. Time Seen by Provider: 12/25/17 10:35 Chief Complaint (Nursing): Abdominal Pain History Per: Patient History/Exam Limitations: no limitations Onset/Duration Of Symptoms: Days Current Symptoms Are (Timing): Still Present Context: Food Severity: Moderate Past Medical History Reviewed: Historical Data, Nursing Documentation, Vital Signs Vital Signs: Last Vital Signs Temp 98.2 F 12/25/17 13:02 Pulse 81 12/25/17 13:02 Resp 17 12/25/17 13:02 BP 155/92 H 12/25/17 13:02 Pulse Ox 96 12/25/17 13:02 - Medical History PMH: Asthma, Atrial Fibrillation, CHF, Diabetes, HTN, Hypercholesterolemia Surgical History: Pacemaker (AICD) Family History: States: No Known Family Hx - Social History Hx Tobacco Use: No Hx Alcohol Use: No Hx Substance Use: No - Immunization History Hx Tetanus Toxoid Vaccination: No Hx Influenza Vaccination: Yes Hx Pneumococcal Vaccination: No Review Of Systems Except As Marked, All Systems Reviewed And Found Negative. Constitutional: Negative for: Fever, Chills Cardiovascular: Negative for: Chest Pain Respiratory: Negative for: Cough, Shortness of Breath Gastrointestinal: Positive for: Nausea, Vomiting, Abdominal Pain (epigastric tenderness), Diarrhea Genitourinary: Negative for: Dysuria, Hematuria Skin: Negative for: Rash Physical Exam - Physical Exam Appears: Well, Non-toxic, Other (mild pain) Skin: Normal Color, Warm Head: Normacephalic Eye(s): bilateral: Normal Inspection Nose: Normal Oral Mucosa: Moist Neck: Supple Cardiovascular: Rhythm Regular Respiratory: Normal Breath Sounds, No Rales, No Rhonchi, No Wheezing Gastrointestinal/Abdominal: Bowel Sounds, Soft, Tenderness (epigastric tenderness), No Guarding, No Rebound, Other ((-) Garza's, (-) McBurney's) Back: No CVA Tenderness Neurological/Psych: Oriented x3 ED Course And Treatment - Laboratory Results Result Diagrams: 12/25/17 11:41 03/30/18 11:41 O2 Sat by Pulse Oximetry: 95 (RA) Pulse Ox Interpretation: Normal Progress Note: Blood work ordered and reviewed. Patient given IV NS bolus, IV Pepcid, IV zofran. Reevaluation Time: 13:00 Reassessment Condition: Improved (On reassessment, patient is resting comfortably and states he feels better. On exam, abdomen is soft and nontender. Patient given Rxs for pepcid and zofran, and he was instructed to follow up with PMD/clinic in 1-2 days. He understands he should return to ED if symptoms worsen.) Disposition Counseled Patient/Family Regarding: Studies Performed, Diagnosis, Need For Followup, Rx Given - Disposition Referrals: Nick Neal MD [Medical Doctor] - Disposition: HOME/ ROUTINE Disposition Time: 13:00 Condition: STABLE Additional Instructions: FOLLOW UP WITH YOUR DOCTOR/CLINIC IN 1-2 DAYS USE MEDICATIONS NEEDED DRINK PLENTY OF CLEAR FLUIDS RETURN TO ER IF SYMPTOMS WORSEN Prescriptions: Famotidine [Pepcid] 20 mg PO BID PRN #15 tab PRN Reason: abdominal Ondansetron [Zofran Odt] 4 mg PO Q8 PRN #10 odt PRN Reason: Nausea/Vomiting Instructions: Food Poisoning Forms: [facility] (Iranian) Print Language: TURKISH - Clinical Impression Clinical Impression: Vomiting, Nausea, Diarrhea - Scribe Statement The provider has reviewed the documentation as recorded by the Anthony Herrera Provider Attestation: All medical record entries made by the Anthony were at my direction and personally dictated by me. I have reviewed the chart and agree that the record accurately reflects my personal performance of the history, physical exam, medical decision making, and the department course for this patient. I have also personally directed, reviewed, and agree with the discharge instructions and disposition.
--- NOTE | 2017-12-25 12:41 | C.PDOC ---
Time Seen by Provider: 12/25/17 10:35 Chief Complaint (Nursing): Abdominal Pain Past Medical History Vital Signs: Last Vital Signs Temp 97.8 F 12/25/17 10:19 Pulse 80 12/25/17 10:19 Resp 16 12/25/17 10:19 BP 161/114 H 12/25/17 10:19 Pulse Ox 95 12/25/17 10:19 - Medical History PMH: Asthma, Atrial Fibrillation, CHF, Diabetes, HTN, Hypercholesterolemia Surgical History: Pacemaker (AICD) Family History: States: Unknown Family Hx - Social History Hx Tobacco Use: No Hx Alcohol Use: No Hx Substance Use: No - Immunization History Hx Tetanus Toxoid Vaccination: No Hx Influenza Vaccination: Yes Hx Pneumococcal Vaccination: No ED Course And Treatment - Laboratory Results Result Diagrams: 12/25/17 11:41 12/25/17 11:41 O2 Sat by Pulse Oximetry: 95 Disposition Counseled Patient/Family Regarding: Diagnosis, Need For Followup, Rx Given - Disposition Referrals: Nick Neal MD [Medical Doctor] - Disposition: HOME/ ROUTINE Disposition Time: 12:30 Condition: STABLE Additional Instructions: FOLLOW UP WITH YOUR DOCTOR/CLINIC IN 1-2 DAYS USE MEDICATIONS NEEDED DRINK PLENTY OF CLEAR FLUIDS RETURN TO ER IF SYMPTOMS WORSEN Prescriptions: Famotidine [Pepcid] 20 mg PO BID PRN #15 tab PRN Reason: abdominal Ondansetron [Zofran Odt] 4 mg PO Q8 PRN #10 odt PRN Reason: Nausea/Vomiting Instructions: Food Poisoning Print Language: TONGAN - Clinical Impression Clinical Impression: Vomiting, Nausea, Diarrhea
[2017-12-25 13:08] VITALS: BP 155/92; PULSE 81; RESP 17; TEMP 98.2
[2017-12-27 11:54] VITALS: O2SAT 95
== END 2017-12-25 13:07 | disposition home or self-care (01) ==
LOC: C.ER 10:11
DX: R11.2 Nausea with vomiting, unspecified (principal); R19.7 Diarrhea, unspecified
CPT/HCPCS: 80053; 83690; 85025; 96361; 96374; 96375; 99284; J2405; J7040

== ENCOUNTER 2018-01-13 15:28 | Emergency (ER) | payer OTHER ==
[2018-01-13 15:54] VITALS: RESP 18; TEMP 98.1
[2018-01-13] MEDS ORDERED: Lidocaine 5% Patch TD STA (16:14)
[2018-01-13] MEDS ORDERED: Lidocaine 5% Patch TD ONE (16:25)
--- NOTE | 2018-01-13 16:56 | C.PDOC ---
History Of Present Illness 42 year old male presents to the ER with a complaint of lower back pain for the past 3 days after throwing out the garbage. Patient has been applying icy/hot and taking tylenol/advil with no relief. Denies Hx of back problems, dysuria, incontinence, weakness, or numbness. Time Seen by Provider: 01/13/18 16:06 Chief Complaint (Nursing): Back Pain History Per: Patient History/Exam Limitations: no limitations Onset/Duration Of Symptoms: Days Current Symptoms Are (Timing): Still Present Quality Of Discomfort: Unable To Describe Previous Symptoms: None Associated Symptoms: None Recent travel outside of the [place]: No Past Medical History Reviewed: Historical Data, Nursing Documentation, Vital Signs Vital Signs: Last Vital Signs Temp 98.1 F 01/13/18 15:50 Pulse 78 01/13/18 17:19 Resp 18 01/13/18 17:19 BP 115/84 01/13/18 17:19 Pulse Ox 97 01/13/18 17:19 - Medical History PMH: Asthma, Atrial Fibrillation, CHF, Diabetes, HTN, Hypercholesterolemia Surgical History: Pacemaker (AICD) Family History: States: Unknown Family Hx - Social History Hx Tobacco Use: No Hx Alcohol Use: No Hx Substance Use: No - Immunization History Hx Tetanus Toxoid Vaccination: No Hx Influenza Vaccination: Yes Hx Pneumococcal Vaccination: No Review Of Systems Genitourinary: Negative for: Dysuria, Incontinence, Hematuria Musculoskeletal: Positive for: Back Pain Neurological: Negative for: Weakness, Numbness Physical Exam - Physical Exam Appears: Non-toxic Skin: Normal Color, Warm, Dry Head: Atraumatic, Normacephalic Eye(s): bilateral: Normal Inspection, EOMI Oral Mucosa: Moist Neck: Normal ROM Chest: Symmetrical Cardiovascular: Rhythm Regular, No Murmur Respiratory: Normal Breath Sounds, No Wheezing Gastrointestinal/Abdominal: Soft, No Tenderness Back: Normal Inspection, No CVA Tenderness, No Vertebral Tenderness, No Decreased ROM, Paraspinal Tenderness (left lumbar) Extremity: Bilateral: Atraumatic, Normal Color And Temperature, Normal ROM Neurological/Psych: Oriented x3, Normal Speech, Normal Motor, Normal Sensation Gait: Steady ED Course And Treatment O2 Sat by Pulse Oximetry: 96 (Room air) Pulse Ox Interpretation: Normal Medical Decision Making Medical Decision Making: based on history and exam, no clinical indication for xray; pain likely muscular Plan: * Lidoderm * Toradol * Valium On reevaluation, patient reports improvement of pain, will discharge home with instructions to follow up with PMD for further evaluation. Disposition Counseled Patient/Family Regarding: Diagnosis, Need For Followup, Rx Given - Disposition Referrals: Melvina Dennis MD [Medical Doctor] - Disposition: HOME/ ROUTINE Disposition Time: 17:15 Condition: GOOD Additional Instructions: Rx sent to [facility] Apply heat to area for 15-20 minutes at a time 2-3 times per day Take Motrin for pain every 6-8 hours as needed, with food to not upset stomach Take Robaxin for muscle pain and spasm as needed, caution can cause drowsiness Follow up with your primary medical doctor or clinic in 2-5 days for further evaluation Return to the emergency department at any time if symptoms persist or worsen. Prescriptions: Methocarbamol [Robaxin-750] 750 mg PO DAILY #15 tablet Naproxen [Naprosyn] 1 tab PO BID PRN #25 tab PRN Reason: Pain Instructions: Low Back Pain in Adults Forms: [facility] (Samoan) - POA Present On Arrival: None - Clinical Impression Clinical Impression: Low back strain - PA / PATROL CONDUCTOR / Resident Statement MD/DO has reviewed & agrees with the documentation as recorded. - Scribe Statement The provider has reviewed the documentation as recorded by the Scribalejo Hardy All medical record entries made by the Angelibalejo were at my direction and personally dictated by me. I have reviewed the chart and agree that the record accurately reflects my personal performance of the history, physical exam, medical decision making, and the department course for this patient. I have also personally directed, reviewed, and agree with the discharge instructions and disposition.
[2018-01-13 17:20] VITALS: BP 115/84; PULSE 78
[2018-01-13 19:53] VITALS: O2SAT 96
== END 2018-01-13 17:20 | disposition home or self-care (01) ==
LOC: C.ER 15:28
DX: S39.012A Strain of muscle, fascia and tendon of lower back, initial encounter (principal); X58.XXXA Exposure to other specified factors, initial encounter
CPT/HCPCS: 96372; 99283; J1885

== ENCOUNTER 2018-02-04 14:22 | Emergency (ER) | payer OTHER ==
[2018-02-04 14:26] VITALS: BMI 35.1
[2018-02-04 14:30] VITALS: O2SAT 97
[2018-02-04] MEDS ORDERED: Tdap Vaccine 0.5 ml Vial (10-64 yrs) IM ONE ×2 (15:27→15:39)
[2018-02-04] MEDS ORDERED: Tmp-Smz 800 mg-160 mg DS Tab PO STA (15:28)
[2018-02-04] MEDS ORDERED: Bacitracin 500 Units/gm Oint Foilpak UD TOP ONE (15:35)
--- NOTE | 2018-02-04 15:37 | C.PDOC ---
History Of Present Illness 42 y/o male presents to the ED with 5 day history of rash to right forearm. States he felt as if he was bit on the forearm, but cannot recall what bit him or when. Patient has noticed increasing redness and irritation to the site. No fevers or chills. Patient is not taking any medications for current symptoms. Tetanus is not up to date. Time Seen by Provider: 02/04/18 15:09 Chief Complaint (Nursing): Abnormal Skin Integrity History Per: Patient History/Exam Limitations: no limitations Onset/Duration Of Symptoms: Days Current Symptoms Are (Timing): Still Present Past Medical History Reviewed: Historical Data, Nursing Documentation, Vital Signs Vital Signs: Last Vital Signs Temp 97.7 F 02/04/18 14:26 Pulse 83 02/04/18 14:26 Resp 16 02/04/18 14:26 BP 132/85 02/04/18 14:26 Pulse Ox 97 02/04/18 15:42 - Medical History PMH: Asthma, Atrial Fibrillation, CHF, Diabetes, HTN, Hypercholesterolemia Surgical History: Pacemaker (AICD) Family History: States: Unknown Family Hx - Social History Hx Tobacco Use: No Hx Alcohol Use: No Hx Substance Use: No - Immunization History Hx Tetanus Toxoid Vaccination: No Hx Influenza Vaccination: Yes Hx Pneumococcal Vaccination: No Review Of Systems Except As Marked, All Systems Reviewed And Found Negative. Skin: Positive for: Rash Physical Exam - Physical Exam Appears: Well, Non-toxic, No Acute Distress Skin: Warm, Dry, Rash (erythema and excoriated rash with slight swelling to right forearm, no drainage) Head: Atraumatic, Normacephalic Eye(s): bilateral: Normal Inspection, PERRL, EOMI Neck: Normal ROM Chest: Symmetrical Respiratory: No Accessory Muscle Use Extremity: Bilateral: Atraumatic, Normal ROM Pulses: Left Radial: Normal, Right Radial: Normal Neurological/Psych: Oriented x3, Normal Speech ED Course And Treatment O2 Sat by Pulse Oximetry: 97 (RA) Pulse Ox Interpretation: Normal Medical Decision Making Medical Decision Making: Impression: Cellulitis Plan: --Tetanus vaccine booster --Bactrim 1 tab PO --Tylenol 975 mg PO Bacitracin and sterile dressing applied to wound. Patient is stable for d/c home. Provided with prescription for Bactrim. Patient advised to follow up with primary doctor in 2 days for wound check Disposition Counseled Patient/Family Regarding: Diagnosis, Need For Followup, Rx Given - Disposition Referrals: [facility] [Outside] Disposition: HOME/ ROUTINE Disposition Time: 15:36 Condition: STABLE Additional Instructions: follow up with your doctor in 2 days call to make an appointment take medications as prescribed return to ER if symptoms worsens or progress Prescriptions: Sulfamethoxazole/Trimethoprim [Bactrim DS 800 mg-160 mg] 1 tab PO BID 10 Days # 20 tab Instructions: Cellulitis (Skin Infection), Adult (DC) Forms: General Discharge Instructions, [facility] [employer] [facility] (Faroese), Work Excuse - POA Present On Arrival: None - Clinical Impression Clinical Impression: Cellulitis - Scribe Statement The provider has reviewed the documentation as recorded by the Scribe (Niru Grove) Provider Attestation: All medical record entries made by the Scribe were at my direction and personally dictated by me. I have reviewed the chart and agree that the record accurately reflects my personal performance of the history, physical exam, medical decision making, and the department course for this patient. I have also personally directed, reviewed, and agree with the discharge instructions and disposition.
[2018-02-04] MEDS ORDERED: Tmp-Smz 800 mg-160 mg DS Tab ONE (15:39)
[2018-02-04] MEDS ORDERED: Bacitracin 500 Units/gm Oint Foilpak UD ONE (15:45)
[2018-02-04 15:53] VITALS: BP 130/80; PULSE 80; RESP 20; TEMP 97
== END 2018-02-04 15:51 | disposition home or self-care (01) ==
LOC: C.ER 14:22
DX: L03.113 Cellulitis of right upper limb (principal); Z23 Encounter for immunization

== ENCOUNTER 2018-05-20 10:36 | Emergency (ER) | payer OTHER ==
[2018-05-20 10:36] VITALS: BMI 35.1
[2018-05-20 10:45] VITALS: BP 122/79; PULSE 81; RESP 20; TEMP 97.9; O2SAT 97
[2018-05-20] MEDS ORDERED: Tetracaine 0.5% Ophth (OR ONLY) OU STA (11:01)
--- NOTE | 2018-05-20 11:04 | C.PDOC ---
History Of Present Illness 42 y/o male presents to the ER complaining of possible stye inside bottom of left eyelid which has been present for the past 1 week. Patient states that he has some associated swelling. Denies having eye discharge. Time Seen by Provider: 05/20/18 10:54 Chief Complaint (Nursing): Eye Problem History Per: Patient History/Exam Limitations: no limitations Onset/Duration Of Symptoms: Days Current Symptoms Are (Timing): Still Present Severity: Moderate Past Medical History Reviewed: Historical Data, Nursing Documentation, Vital Signs Vital Signs: Last Vital Signs Temp 97.9 F 05/20/18 10:47 Pulse 81 05/20/18 10:47 Resp 20 05/20/18 10:47 BP 122/79 05/20/18 10:47 Pulse Ox 97 05/20/18 11:51 - Medical History PMH: Asthma, Atrial Fibrillation, CHF, Diabetes, HTN, Hypercholesterolemia Surgical History: Pacemaker (AICD) Family History: States: No Known Family Hx - Social History Hx Tobacco Use: No Hx Alcohol Use: No Hx Substance Use: No - Immunization History Hx Tetanus Toxoid Vaccination: No Hx Influenza Vaccination: Yes Hx Pneumococcal Vaccination: No Review Of Systems Except As Marked, All Systems Reviewed And Found Negative. Eyes: Positive for: Other (stye inside of bottom left eyelid) Physical Exam - Physical Exam Appears: Non-toxic, No Acute Distress Skin: Normal Color, Warm, Dry Head: Atraumatic, Normacephalic Eye(s): right: Normal Inspection, left: Other (stye inside of left lower eyelid , mild erythema) Neurological/Psych: Oriented x3, Normal Speech ED Course And Treatment O2 Sat by Pulse Oximetry: 97 Medical Decision Making Medical Decision Making: Plan: --Motrin PO -- Tetracaine OU Updates: Patient has been discharged with prescription for Ciloxan eye drops and advised to follow up with caul puller immediately after ER visit. Disposition Counseled Patient/Family Regarding: Diagnosis, Need For Followup, Rx Given - Disposition Referrals: Giovanni Simpson [Staff Provider] - Disposition: HOME/ ROUTINE Disposition Time: 11:01 Condition: GOOD Prescriptions: Ciprofloxacin 0.3% [Ciloxan 0.3% Ophth SOLN] 2 drop OD Q2 #1 bottle Instructions: Stye (Hordeolum) Forms: [facility] (Congolese), Work Excuse - Clinical Impression Clinical Impression: Sty, internal - Scribe Statement The provider has reviewed the documentation as recorded by the Scribe Tom Herrera Provider Attestation: All medical record entries made by the Scribe were at my direction and personally dictated by me. I have reviewed the chart and agree that the record accurately reflects my personal performance of the history, physical exam, medical decision making, and the department course for this patient. I have also personally directed, reviewed, and agree with the discharge instructions and disposition.
[2018-05-20] MEDS ORDERED: Tetracaine 0.5% Ophth (OR ONLY) ONE (11:05)
== END 2018-05-20 11:16 | disposition home or self-care (01) ==
LOC: C.ER 10:36
DX: H00.025 Hordeolum internum left lower eyelid (principal)

== ENCOUNTER 2018-06-01 18:40 | Observation (INO) | payer OTHER ==
[2018-06-01 18:47] VITALS: BMI 34.7
[2018-06-01 19:39] LABS: BASO % 0.5 % (0.0-2.0); EOS # 0.2 K/uL (0.0-0.7); EOS % 1.7 % (0.0-4.0); HEMOGLOBIN 14.9 g/dL (12.0-18.0); LYMPH # 2.7 K/uL (1.0-4.3); LYMPH % 29.7 % (20.0-40.0); MEAN CELL VOLUME 81.1 fL (80.0-94.0); MEAN CORPUSCULAR HEMOGLOBIN 27.9 pg (27.0-31.0); MEAN CORPUSCULAR HGB CONC 34.4 g/dL (33.0-37.0); MEAN PLATELET VOLUME 8.8 fL (7.2-11.7); MONO # 0.7 K/uL (0.0-0.8); MONO % 7.3 % (0.0-10.0); NEUT # 5.5 K/uL (1.8-7.0); NEUT % 60.8 % (50.0-75.0); RBC 5.34 Mil/uL (4.40-5.90); RED CELL DISTRIBUTION WIDTH 14.1 % (11.5-14.5); WHITE BLOOD COUNT 9.1 K/uL (4.8-10.8)
[2018-06-01 19:43] LABS: BLOOD UREA NITROGEN 15 mg/dL (9-20); CALCIUM 9.2 mg/dl (8.6-10.4); GFR NON-AFRICAN AMERICAN > 60
[2018-06-01] MEDS ORDERED: Aspirin 325 mg EC Tablets PO STA (19:49)
--- NOTE | 2018-06-01 19:49 | C.PDOC ---
History Of Present Illness 42 y/o male presents to the ED complaining of chest pain for 2 days. Pain is localized to left-side of chest wall. [place] [facility] [place] left before being seen. Patient then awoke today with dull, achy, left chest wall discomfort. No fever, chills, nausea, vomiting. Time Seen by Provider: 06/01/18 19:49 Chief Complaint (Nursing): Chest Pain History Per: Patient History/Exam Limitations: no limitations Onset/Duration Of Symptoms: Days Current Symptoms Are (Timing): Still Present Severity: Moderate Pain Scale Rating Of: 4 Quality: Dull, Aching Modifying Factors: None Alleviating Factors: None Recent travel outside of the [place]: No Additional History Per: Patient Past Medical History Reviewed: Historical Data, Nursing Documentation, Vital Signs Vital Signs: Last Vital Signs Temp 98.2 F 06/01/18 18:49 Pulse 85 06/01/18 18:49 Resp 18 06/01/18 18:49 BP 136/84 06/01/18 18:49 Pulse Ox 97 06/01/18 20:38 - Medical History PMH: Asthma, Atrial Fibrillation, CHF, Diabetes, HTN, Hypercholesterolemia Surgical History: Pacemaker (AICD) Family History: States: No Known Family Hx - Social History Hx Tobacco Use: No Hx Alcohol Use: No Hx Substance Use: No - Immunization History Hx Tetanus Toxoid Vaccination: No Hx Influenza Vaccination: Yes Hx Pneumococcal Vaccination: No Review Of Systems Constitutional: Negative for: Fever, Chills Eyes: Negative for: Vision Change Cardiovascular: Positive for: Chest Pain. Negative for: Palpitations Respiratory: Negative for: Cough, Shortness of Breath, Wheezing Gastrointestinal: Negative for: Nausea, Vomiting, Abdominal Pain Genitourinary: Negative for: Dysuria Musculoskeletal: Negative for: Back Pain Skin: Negative for: Rash Neurological: Negative for: Weakness, Numbness, Incoordination, Dizziness Psych: Negative for: Anxiety Physical Exam - Physical Exam Appears: Non-toxic, No Acute Distress Skin: Warm, Dry Head: Normacephalic Eye(s): bilateral: Normal Inspection Oral Mucosa: Moist Neck: Trachea Midline, Supple Chest: No Tenderness, Other (Left pacemaker defibrillator in place) Cardiovascular: Rhythm Regular Respiratory: No Rales, No Rhonchi, No Wheezing Gastrointestinal/Abdominal: Soft, No Tenderness, No Distention, No Guarding, Other (obese abdomen) Back: Normal Inspection Extremity: Normal ROM Extremity: Bilateral: Atraumatic, Normal Color And Temperature, Normal ROM Pulses: Left Dorsalis Pedis: Normal, Right Dorsalis Pedis: Normal Neurological/Psych: Oriented x3, Normal Speech Gait: Steady ED Course And Treatment - Laboratory Results Result Diagrams: 06/01/18 19:25 06/01/18 19:25 ECG: Interpreted By Me, Viewed By Me ECG Rhythm: Sinus Rhythm (76), Nonspecific Changes O2 Sat by Pulse Oximetry: 97 Pulse Ox Interpretation: Normal - Radiology CXR: Interpreted by Me, Viewed By Me CXR Interpretation: Yes: Other (pacer left chest ). No: Infiltrates, Fracture, Pnemothorax Progress Note: Blood work and urine sent to the lab. EKG and chest x-ray obtained. Patient given 325 mg Aspirin PO. Labs reviewed. Case discussed with patients respiratory director, Dr. Crenshaw. - Physician Consult Information Time Consulting Physician Contacted: 20:36 Physician Contacted: stevo Disposition Discussed With : Prashanth Dunlap Comment: accepted the pt on his service and took over the care at 8:56PM Doctor Will See Patient In The: ED Counseled Patient/Family Regarding: Studies Performed, Diagnosis - Disposition Disposition: HOSPITALIZED Disposition Time: 19:49 Condition: FAIR Forms: [facility] (Macedonian) - POA Present On Arrival: Poor Glycemic Control - Clinical Impression Clinical Impression: Chest pain, CHF (congestive heart failure) - Scribe Statement The provider has reviewed the documentation as recorded by the Anthony Grove Provider Attestation: All medical record entries made by the Angelibe were at my direction and personally dictated by me. I have reviewed the chart and agree that the record accurately reflects my personal performance of the history, physical exam, medical decision making, and the department course for this patient. I have also personally directed, reviewed, and agree with the discharge instructions and disposition. Decision To Admit - Pt Status Changed To: Hospital Disposition Of: Observation - . Bed Request Type: Telemetry Admitting Physician: Prashanth Dunlap Patient Diagnosis: Chest pain, CHF (congestive heart failure)
[2018-06-01 20:00] LABS: B-TYPE NATRIURETIC PEPTIDE 578 pg/mL (0-450)
[2018-06-01] MEDS ORDERED: Aspirin 325 mg EC Tablets PO ONE (20:05)
[2018-06-01 20:12] LABS: INR 1.1; PROTHROMBIN TIME 11.8 SECONDS (9.7-12.2)
[2018-06-01 20:16] LABS: URINE BILIRUBIN NEGATIVE (NEGATIVE); URINE BLOOD NEGATIVE (NEGATIVE); URINE CLARITY Clear (Clear); URINE COLOR Yellow (YELLOW); URINE GLUCOSE (UA) NORMAL (Normal); URINE LEUKOCYTE ESTERASE NEG Leu/uL (Negative); URINE PROTEIN NEGATIVE (NEGATIVE); URINE UROBILINOGEN NORMAL mg/dL (0.2-1.0)
--- NOTE | 2018-06-01 23:19 | CP.PCM.HP ---
<Bonifacio Day - Last Filed: 06/02/18 05:39> History of Present Illness - History of Present Illness History of Present Illness: PGY2 Medicine H+P for Dr. Dunlap Patient is a 42 year old male with a past medical history of CHF, non- ischemic cardiomyopathy (s/p AICD/pacemaker), A-fib, asthma, DM, HTN, and hypercholesterolemia presenting to the emergency department with a complaint of left sided chest pain. The left sided chest pain started 4 days ago and is described as a strong, sharp, non-radiating pain. Pain had an acute onset when was lifting heavy cases of water. The pain is alleviated with rest and with laying on his side. The pain is exacerbated with deep inspiration, movement and if he presses on his chest. He states he has had similar episodes of left sided chest pain with heavy lifting in the past. He has no other medical complaints today. He is able to walk over a mile and go up multiple flights of stairs without becoming short of breath. Denies fevers, chills, nausea, vomiting, diarrhea, constipation, SOB, abdominal pain, headache, vision changes, numbness or tingling. Galley Cook: Dr. Crenshaw PMH: CHF, non-ischemic cardiomyopathy (s/p AICD/pacemaker), A-fib, asthma, DM, HTN, and hypercholesterolemia PSH: possible clean cardiac cath within past two years?? (unconfirmed) Family: Father and paternal Grandfather had "enlarged hearts from " Social: denies tobacco, alcohol or illicit drug use Allergies: NKDA Present on Admission - Present on Admission Any Indicators Present on Admission: No Review of Systems - Review of Systems All systems: reviewed and no additional remarkable complaints except - Constitutional Constitutional: As Per HPI - EENT Eyes: As Per HPI Ears: As Per HPI Nose/Mouth/Throat: As Per HPI - Cardiovascular Cardiovascular: As Per HPI - Respiratory Respiratory: As Per HPI - Gastrointestinal Gastrointestinal: As Per HPI - Genitourinary Genitourinary: As Per HPI - Musculoskeletal Musculoskeletal: As Per HPI - Integumentary Integumentary: As Per HPI - Neurological Neurological: As Per HPI - Psychiatric Psychiatric: As Per HPI - Endocrine Endocrine: As Per HPI - Hematologic/Lymphatic Hematologic: As Per HPI Past Patient History - Infectious Disease Hx of Infectious Diseases: None - Past Medical History & Family History Past Medical History?: Yes - Past Social History Smoking Status: Never Smoked - CARDIAC Hx Atrial Fibrillation: Yes Hx Congestive Heart Failure: Yes Hx Hypercholesterolemia: Yes Hx Hypertension: Yes Hx Pacemaker: Yes (AICD) - PULMONARY Hx Asthma: Yes - NEUROLOGICAL Hx Neurological Disorder: No - HEENT Hx HEENT Problems: No Hx Blind: No - ENDOCRINE/METABOLIC Hx Endocrine Disorders: Yes Hx Diabetes Mellitus Type 2: Yes - HEMATOLOGICAL/ONCOLOGICAL Hx Blood Disorders: No - INTEGUMENTARY Hx Dermatological Problems: No - MUSCULOSKELETAL/RHEUMATOLOGICAL Hx Musculoskeletal Disorders: Yes Hx Falls: Yes - GASTROINTESTINAL Hx Gastrointestinal Disorders: No - GENITOURINARY/GYNECOLOGICAL Hx Genitourinary Disorders: No - PSYCHIATRIC Hx Substance Use: No - SURGICAL HISTORY Hx Surgeries: Yes Other/Comment: AICD - ANESTHESIA Hx Anesthesia: Yes Hx Anesthesia Reactions: No Hx Malignant Hyperthermia: No Meds Allergies/Adverse Reactions: Allergies Allergy/AdvReac Type Severity Reaction Status Date / Time No Known Allergies Allergy Verified 05/20/18 10:45 Physical Exam - Constitutional Appears: Non-toxic, No Acute Distress - Head Exam Head Exam: ATRAUMATIC, NORMOCEPHALIC - Eye Exam Eye Exam: Normal appearance - ENT Exam ENT Exam: Mucous Membranes Moist - Neck Exam Neck exam: Negative for: Lymphadenopathy - Respiratory Exam Respiratory Exam: Chest Wall Tenderness (left side), Clear to Auscultation Bilateral, Rales, NORMAL BREATHING PATTERN. absent: Accessory Muscle Use, Wheezes, Respiratory Distress - Cardiovascular Exam Cardiovascular Exam: REGULAR RHYTHM, +S1, +S2 - GI/Abdominal Exam GI & Abdominal Exam: Normal Bowel Sounds, Soft. absent: Distended, Firm, Guarding, Rigid, Tenderness - Extremities Exam Extremities exam: Positive for: normal inspection, pedal pulses present. Negative for: calf tenderness, pedal edema - Neurological Exam Neurological exam: Alert, CN II-XII Intact, Oriented x3 - Psychiatric Exam Psychiatric exam: Normal Affect, Normal Mood - Skin Skin Exam: Dry, Warm Results - Vital Signs Recent Vital Signs: Last Vital Signs Temp 98.6 F 06/01/18 21:39 Pulse 77 06/01/18 21:41 Resp 18 06/01/18 21:39 BP 152/88 H 06/01/18 21:39 Pulse Ox 98 06/01/18 21:41 - Labs Result Diagrams: 06/01/18 19:25 06/02/18 01:56 Labs: Laboratory Results - last 24 hr 06/01/18 06/01/18 06/01/18 19:25 19:25 20:01 WBC 9.1 RBC 5.34 Hgb 14.9 Hct 43.3 MCV 81.1 MCH 27.9 MCHC 34.4 RDW 14.1 Plt Count 275 MPV 8.8 Neut % (Auto) 60.8 Lymph % (Auto) 29.7 Emmons % (Auto) 7.3 Eos % (Auto) 1.7 Baso % (Auto) 0.5 Neut # (Auto) 5.5 Lymph # (Auto) 2.7 Emmons # (Auto) 0.7 Eos # (Auto) 0.2 Baso # (Auto) 0.0 PT 11.8 INR 1.1 APTT 31 Sodium 141 Potassium 3.5 L Chloride 101 Carbon Dioxide 24 Anion Gap 19 BUN 15 Creatinine 0.8 Est GFR ( Amer) > 60 Est GFR (Non-Af Amer) > 60 Random Glucose 147 H Calcium 9.2 Troponin I 0.0210 NT-Pro-B Natriuret Pep 578 H Urine Color Urine Clarity Urine pH Ur Specific Slater Urine Protein Urine Glucose (UA) Urine Ketones Urine Blood Urine Nitrate Urine Bilirubin Urine Urobilinogen Ur Leukocyte Esterase Urine WBC (Auto) Urine RBC (Auto) 06/01/18 20:11 WBC RBC Hgb Hct MCV MCH MCHC RDW Plt Count MPV Neut % (Auto) Lymph % (Auto) Emmons % (Auto) Eos % (Auto) Baso % (Auto) Neut # (Auto) Lymph # (Auto) Emmons # (Auto) Eos # (Auto) Baso # (Auto) PT INR APTT Sodium Potassium Chloride Carbon Dioxide Anion Gap BUN Creatinine Est GFR ( Amer) Est GFR (Non-Af Amer) Random Glucose Calcium Troponin I NT-Pro-B Natriuret Pep Urine Color Yellow Urine Clarity Clear Urine pH 6.0 Ur Specific [place] 1.015 Urine Protein Negative Urine Glucose (UA) Normal Urine Ketones Negative Urine Blood Negative Urine Nitrate Negative Urine Bilirubin Negative Urine Urobilinogen Normal Ur Leukocyte Esterase Neg Urine WBC (Auto) < 1 Urine RBC (Auto) 1 Assessment & Plan - Assessment and Plan (Free Text) Plan: Chest Pain Cardiology Consulted, Dr. Crenshaw Pain is reproducible, worsened with movement, no associated SOB and acute onset with heavy lifting --> low suspicion for ischemic pathology. Likely musculoskelatal in nature. CXR 06/01/18: no acute disease, pacemaker/AICD located in left side of chest --> pending official report EKG 06/01/18: NSR @76bpm, normal axis, left atrial enlargement, no acute st segment changes. Trop 0.0210, 0.0320 -- pending 3rd ERMELINDA UA unremarkable Medications * Aspirin 81mg PO daily * Tylenol 650mg PO q6h prn hx of CHF/Cardiomyopathy s/p pacemaker/AICD Cardiology Consulted, Dr. Crenshaw * Will need to call Dr. Crenshaw and confirm medications in morning as patient does not know his medications. proBNP 578 Diabetes ISS - high Hypoglycemic protocol Hypertension stable need to call and confirm medications hx of Asthma controlled - denies SOB, speaking in full sentences reports not taking a daily inhaler Prophylactic Care Lovenox 40mg SC daily Pepcid 20mg PO daily Case discussed with Dr. Germán Valdovinos Barb PGY2 <Prashanth Dunlap P - Last Filed: 06/02/18 07:45> Results - Vital Signs Recent Vital Signs: Last Vital Signs Temp 97.3 F L 06/02/18 04:15 Pulse 58 L 06/02/18 05:03 Resp 20 06/02/18 04:15 BP 136/88 06/02/18 04:15 Pulse Ox 96 06/02/18 04:15 - Labs Result Diagrams: 06/01/18 19:25 06/02/18 01:56 Labs: Laboratory Results - last 24 hr 06/01/18 06/01/18 06/01/18 19:25 19:25 20:01 WBC 9.1 RBC 5.34 Hgb 14.9 Hct 43.3 MCV 81.1 MCH 27.9 MCHC 34.4 RDW 14.1 Plt Count 275 MPV 8.8 Neut % (Auto) 60.8 Lymph % (Auto) 29.7 Emmons % (Auto) 7.3 Eos % (Auto) 1.7 Baso % (Auto) 0.5 Neut # (Auto) 5.5 Lymph # (Auto) 2.7 Emmons # (Auto) 0.7 Eos # (Auto) 0.2 Baso # (Auto) 0.0 PT 11.8 INR 1.1 APTT 31 Sodium 141 Potassium 3.5 L Chloride 101 Carbon Dioxide 24 Anion Gap 19 BUN 15 Creatinine 0.8 Est GFR ( Amer) > 60 Est GFR (Non-Af Amer) > 60 POC Glucose (mg/dL) Random Glucose 147 H Calcium 9.2 Total Bilirubin AST ALT Alkaline Phosphatase Total Creatine Kinase CK-MB (Mass) Troponin I 0.0210 NT-Pro-B Natriuret Pep 578 H Total Protein Albumin Globulin Albumin/Globulin Ratio Urine Color Urine Clarity Urine pH Ur Specific [place] Urine Protein Urine Glucose (UA) Urine Ketones Urine Blood Urine Nitrate Urine Bilirubin Urine Urobilinogen Ur Leukocyte Esterase Urine WBC (Auto) Urine RBC (Auto) 06/01/18 06/02/18 06/02/18 20:11 01:56 06:38 WBC RBC Hgb Hct MCV MCH MCHC RDW Plt Count MPV Neut % (Auto) Lymph % (Auto) Emmons % (Auto) Eos % (Auto) Baso % (Auto) Neut # (Auto) Lymph # (Auto) Emmons # (Auto) Eos # (Auto) Baso # (Auto) PT INR APTT Sodium 142 Potassium 3.4 L Chloride 102 Carbon Dioxide 29 Anion Gap 14 BUN 15 Creatinine 0.8 Est GFR ( Amer) > 60 Est GFR (Non-Af Amer) > 60 POC Glucose (mg/dL) 107 Random Glucose 187 H Calcium 9.4 Total Bilirubin 0.6 AST 16 L D ALT 30 Alkaline Phosphatase 110 Total Creatine Kinase 45 L CK-MB (Mass) 0.89 Troponin I 0.0320 NT-Pro-B Natriuret Pep Total Protein 7.4 Albumin 4.1 Globulin 3.3 Albumin/Globulin Ratio 1.3 Urine Color Yellow Urine Clarity Clear Urine pH 6.0 Ur Specific Slater 1.015 Urine Protein Negative Urine Glucose (UA) Normal Urine Ketones Negative Urine Blood Negative Urine Nitrate Negative Urine Bilirubin Negative Urine Urobilinogen Normal Ur Leukocyte Esterase Neg Urine WBC (Auto) < 1 Urine RBC (Auto) 1 Attending/Attestation - Attestation I have personally seen and examined this patient.: Yes I have fully participated in the care of the patient.: Yes I have reviewed all pertinent clinical information: Yes Notes (Text): 06/02/18 07:43 Atypical chest pain, likely musculoskeletal H/o non ischemic cardiomyopathy, s/p aicd, familial Plan Serial enzymes Cardiology consult Dr. Crenshaw who is patients net repairer Cath report from [facility]. See orders for detail.
[2018-06-02 00:03] VITALS: RESP 20
[2018-06-02 02:21] LABS: CK-MB 0.89 ng/mL (0.0-3.38)
[2018-06-02 02:35] LABS: ALB/GLOB RATIO 1.3 (1.0-2.1); ALBUMIN 4.1 g/dL (3.5-5.0); ALT/SGPT 30 U/L (21-72); AST/SGOT 16 U/L (17-59); BLOOD UREA NITROGEN 15 mg/dL (9-20); CALCIUM 9.4 mg/dl (8.6-10.4); GFR NON-AFRICAN AMERICAN > 60
[2018-06-02 04:28] VITALS: O2SAT 96
[2018-06-02] MEDS ORDERED: Glucagon Recombinant 1 mg Inj IM PRN (05:55)
[2018-06-02] MEDS ORDERED: Dextrose 50% SYRINGE Inj (50 ml) IV PRN (05:55)
[2018-06-02] MEDS ORDERED: Potassium Chloride 20 mEq ER Tab PO STA (07:48)
[2018-06-02 07:59] LABS: BASO # 0.1 K/uL (0.0-0.2); BASO % 0.6 % (0.0-2.0); EOS # 0.2 K/uL (0.0-0.7); EOS % 2.3 % (0.0-4.0); LYMPH # 2.7 K/uL (1.0-4.3); LYMPH % 31.2 % (20.0-40.0); MEAN CELL VOLUME 82.2 fL (80.0-94.0); MEAN CORPUSCULAR HEMOGLOBIN 27.7 pg (27.0-31.0); MEAN CORPUSCULAR HGB CONC 33.7 g/dL (33.0-37.0); MONO # 0.7 K/uL (0.0-0.8); MONO % 7.9 % (0.0-10.0); RBC 5.41 Mil/uL (4.40-5.90); RED CELL DISTRIBUTION WIDTH 14.1 % (11.5-14.5); WHITE BLOOD COUNT 8.7 K/uL (4.8-10.8)
[2018-06-02] MEDS: (Novolin R) Insulin Human Regular 100 units/ml vial SC SCH ×2 (08:05→14:28)
--- NOTE | 2018-06-02 08:17 | RAD ---
Date of service: 06/01/2018 PROCEDURE: CHEST RADIOGRAPH, 1 VIEW HISTORY: Chest pain COMPARISON: 12/16/2017. FINDINGS: LUNGS: The lungs are well inflated and clear. PLEURA: No pneumothorax or pleural fluid seen. CARDIOVASCULAR: Persistent mild cardiomegaly. There is stable position of left-sided AICD. OSSEOUS STRUCTURES: No significant abnormalities. VISUALIZED UPPER ABDOMEN: Normal. OTHER FINDINGS: None. IMPRESSION: No acute findings.
[2018-06-02 08:20] LABS: CK-MB 1.03 ng/mL (0.0-3.38); TROPONIN I 0.04 ng/mL (0.00-0.120)
[2018-06-02 08:33] VITALS: BP 112/72; TEMP 97.4
[2018-06-02] MEDS ORDERED: Enoxaparin 40 mg Syringe SC SCH (10:00)
[2018-06-02 12:02] VITALS: PULSE 69
--- NOTE | 2018-06-02 17:54 | CARD ---
APPROVED REPORT Date of service: 06/01/2018 EKG Measurement Heart [id number] <Conclusion> Normal sinus rhythm Normal Electrocardiogram
--- NOTE | 2018-06-02 19:29 | CP.PCM.DIS ---
Provider - Provider Date of Admission: 06/01/18 20:54 Attending physician: Prashanth Dunlap MD Primary care physician: Patient denied Consults: Cardiology: Dr. Crenshaw Time Spent in preparation of Discharge (in minutes): 45 Diagnosis - Discharge Diagnosis (1) Chest pain Status: Acute Priority: Medium Hospital Course - Lab Results Lab Results: Most Recent Lab Values WBC 8.7 K/uL (4.8-10.8) 06/02/18 07:43 RBC 5.41 Mil/uL (4.40-5.90) 06/02/18 07:43 Hgb 15.0 g/dL (12.0-18.0) 06/02/18 07:43 Hct 44.5 % (35.0-51.0) 06/02/18 07:43 MCV 82.2 fL (80.0-94.0) 06/02/18 07:43 MCH 27.7 pg (27.0-31.0) 06/02/18 07:43 MCHC 33.7 g/dL (33.0-37.0) 06/02/18 07:43 RDW 14.1 % (11.5-14.5) 06/02/18 07:43 Plt Count 271 K/uL (130-400) 06/02/18 07:43 MPV 9.0 fL (7.2-11.7) 06/02/18 07:43 Neut % (Auto) 58.0 % (50.0-75.0) 06/02/18 07:43 Lymph % (Auto) 31.2 % (20.0-40.0) 06/02/18 07:43 Finney % (Auto) 7.9 % (0.0-10.0) 06/02/18 07:43 Eos % (Auto) 2.3 % (0.0-4.0) 06/02/18 07:43 Baso % (Auto) 0.6 % (0.0-2.0) 06/02/18 07:43 Neut # (Auto) 5.0 K/uL (1.8-7.0) 06/02/18 07:43 Lymph # (Auto) 2.7 K/uL (1.0-4.3) 06/02/18 07:43 Finney # (Auto) 0.7 K/uL (0.0-0.8) 06/02/18 07:43 Eos # (Auto) 0.2 K/uL (0.0-0.7) 06/02/18 07:43 Baso # (Auto) 0.1 K/uL (0.0-0.2) 06/02/18 07:43 PT 11.8 SECONDS (9.7-12.2) 06/01/18 20:01 INR 1.1 06/01/18 20:01 APTT 31 SECONDS (21-34) 06/01/18 20:01 Sodium 142 mmol/L (132-148) 06/02/18 01:56 Potassium 3.4 mmol/L (3.6-5.2) L 06/02/18 01:56 Chloride 102 mmol/L (98-107) 06/02/18 01:56 Carbon Dioxide 29 mmol/L (22-30) 06/02/18 01:56 Anion Gap 14 (10-20) 06/02/18 01:56 BUN 15 mg/dL (9-20) 06/02/18 01:56 Creatinine 0.8 mg/dL (0.8-1.5) 06/02/18 01:56 Est GFR ( Amer) > 60 06/02/18 01:56 Est GFR (Non-Af Amer) > 60 06/02/18 01:56 POC Glucose (mg/dL) 114 mg/dL (65-110) H 06/02/18 11:59 Random Glucose 187 mg/dL (75-110) H 06/02/18 01:56 Calcium 9.4 mg/dl (8.6-10.4) 06/02/18 01:56 Total Bilirubin 0.6 mg/dL (0.2-1.3) 06/02/18 01:56 AST 16 U/L (17-59) L D 06/02/18 01:56 ALT 30 U/L (21-72) 06/02/18 01:56 Alkaline Phosphatase 110 U/L (38-126) 06/02/18 01:56 Total Creatine Kinase 43 U/L (55-170) L 06/02/18 07:43 CK-MB (Mass) 1.03 ng/mL (0.0-3.38) 06/02/18 07:43 Troponin I 0.0400 ng/mL (0.00-0.120) 06/02/18 07:43 NT-Pro-B Natriuret Pep 578 pg/mL (0-450) H 06/01/18 19:25 Total Protein 7.4 g/dL (6.3-8.3) 06/02/18 01:56 Albumin 4.1 g/dL (3.5-5.0) 06/02/18 01:56 Globulin 3.3 gm/dL (2.2-3.9) 06/02/18 01:56 Albumin/Globulin Ratio 1.3 (1.0-2.1) 06/02/18 01:56 Urine Color Yellow (YELLOW) 06/01/18 20:11 Urine Clarity Clear (Clear) 06/01/18 20:11 Urine pH 6.0 (5.0-8.0) 06/01/18 20:11 Ur Specific [place] 1.015 (1.003-1.030) 06/01/18 20:11 Urine Protein Negative mg/dL (NEGATIVE) 06/01/18 20:11 Urine Glucose (UA) Normal mg/dL (Normal) 06/01/18 20:11 Urine Ketones Negative mg/dL (NEGATIVE) 06/01/18 20:11 Urine Blood Negative (NEGATIVE) 06/01/18 20:11 Urine Nitrate Negative (NEGATIVE) 06/01/18 20:11 Urine Bilirubin Negative (NEGATIVE) 06/01/18 20:11 Urine Urobilinogen Normal mg/dL (0.2-1.0) 06/01/18 20:11 Ur Leukocyte Esterase Neg Ama/uL (Negative) 06/01/18 20:11 Urine WBC (Auto) < 1 /hpf (0-5) 06/01/18 20:11 Urine RBC (Auto) 1 /hpf (0-3) 06/01/18 20:11 - Hospital Course Hospital Course: PGY1 Hospital Course for Attending Physician Dr. Jostin Cardozo Patient is a 42 year old male with a past medical history of CHF, non- ischemic cardiomyopathy (s/p AICD/pacemaker), A-fib, asthma, DM, HTN, and hypercholesterolemia presented to the emergency department with a complaint of left sided chest pain. The left sided chest pain began 4 days prior. Patient described the pain as a strong, sharp, non-radiating pain. Pain had an acute onset when was lifting heavy cases of water. The pain was alleviated with rest and with laying on his side. The pain is exacerbated with deep inspiration, movement, and if he pressed on his chest. He stated he has had similar episodes of left sided chest pain with heavy lifting in the past. He has no other medical complaints at the time. He was able to walk over a mile and go up multiple flights of stairs without becoming short of breath. Denied fevers, chills, nausea, vomiting, diarrhea, constipation, SOB, abdominal pain, headache , vision changes, numbness or tingling. Patient was subsequently admitted for cardiac workup in evaluation of his chest pain. Please see chart for full summary and for more details. Cardiology Consulted, Dr. Crneshaw. Pain is reproducible, worsened with movement , with no associated SOB and acute onset with heavy lifting. Thus, there was low suspicion for ischemic pathology. Likely musculoskelatal in nature. CXR obtained and revealed no acute disease, pacemaker/AICD located in left side of chest. EKG was obtained and revealed NSR @76bpm, normal axis, left atrial enlargement, no acute st segment changes. ERMELINDA panel was ordered and all troponins were negative. Urinalysis was obtained and was unremarkable. Patient was asked about what home medications he is prescribed, but patient states he is unable to find any information regarding his medication history because he doesn't speak [place], doesn't own a computer, and/or a car. Patient was treated with Aspirin 81mg PO daily. Patient was treated with Tylenol 650mg PO Q6H for pain PRN. Of note, patient has diabetes (uncontrolled) and was treated with Insulin Sliding Scale during admission. On the day of discharge, the patient was approached about performing daily stretches to help with his musculoskeletal issues. Nonetheless, the patient appeared disinterested about his medical conditions throughout the discussion, and continued to state that he cannot learn how to do stretches because "he does not own a computer, thus he cannot look any stretches up." On day of discharge, patient was hemodynamically stable and was medically stable. Patient was subsequently discharged with the following instructions: The following instructions were explained to patient and copy will need to be provided to him upon discharge: 1). Please make sure that you follow up with your Primary Care Physician in the next couple of days to help coordinate your care and to go over your medications. 2). You stated that you had enough of your medications at home but could not provide any information concerning what they are. You also provided us with the address of your pharmacy located at [address] [place] [address] and this pharmacy was contacted but there was no answer despite 3 attempts. Therefore it is extremely important for you to follow up with your Primary Care Physician as mentioned above. Also as discussed with you, you should keep a written copy of your medications (dosage and the time when you take them) with you in your wallet at all times. 3). You may apply a bag of frozen vegatables or bag of ice to your left upper chest area for 30 minutes every 6 hours as needed for the muscle strain there. You may also use 500 mg of Tylenol by mouth every 6 hours as needed for the pain in this area. 4). You can perform a Google Search on the internet to find multiple websites that will provide you with instructions on how to perform stretches for your whole body. 5). Please take care and be well. Dieudonne Frankel D.O. Se le explicaron al paciente las siguientes instrucciones y se le deber proporcionar cari copia al momento del christiana: 1). Asegrese de hacer un seguimiento con carbajal mdico de atencin primaria en los prximos lou[place] para ayudar a coordinar carbajal atencin y repasar leesa medicamentos. 2). Usted indic que ya ten a suficientes medicamentos en casa, jose g no pudo proporcionar ninguna informaci n sobre lo que son. Tambin nos proporcion la direccin de carbajal farmacia ubicada en [address] [place] [address] y se contact a esta farmacia, jose g no hubo respuesta a pesar de 3 intentos. Por lo tanto, es extremadamente importante que cecilia un seguimiento con carbajal mdico de atencin primaria denzel se mencion anteriormente. Tambin denzel se discuti con usted, debe tener consigo cari copia escrita de leesa medicamentos (la dosis y el momento en que los melissa) con usted en carbajal billetera en todo momento. 3). Puede aplicar cari bolsa de vegetales congelados o acri bolsa de hielo en el mireya superior izquierda de carbajal pecho bebeto 30 minutos cada 6 horas, segn sea necesario para la distensin muscular. Tambin puede usar 500 mg de Tylenol por va oral cada 6 horas, segn sea necesario para el dolor en esta mireya. 4). Puede realizar cari Bsqueda de [employer] en Internet para encontrar varios sitios web que le proporcionarn instrucciones sobre senior qa analyst realizar estiramientos para todo carbajal cuerpo. 5). Por favor cudate y estate chris. Dieudonne Frankel D.O. Patient seen and case discussed with Attending Physician Dr. Jostin Flores PGY1 Discharge Exam - Additional Findings Additional findings: - Constitutional Appears: Non-toxic, No Acute Distress - Head Exam Head Exam: ATRAUMATIC, NORMOCEPHALIC - Eye Exam Eye Exam: Normal appearance - ENT Exam ENT Exam: Mucous Membranes Moist - Neck Exam Neck exam: Negative for: Lymphadenopathy - Respiratory Exam Respiratory Exam: Chest Wall Tenderness (left side), Clear to Auscultation Bilateral, Rales, NORMAL BREATHING PATTERN. absent: Accessory Muscle Use, Wheezes, Respiratory Distress - Cardiovascular Exam Cardiovascular Exam: REGULAR RHYTHM, +S1, +S2 - GI/Abdominal Exam GI & Abdominal Exam: Normal Bowel Sounds, Soft. absent: Distended, Firm, Guarding, Rigid, Tenderness - Extremities Exam Extremities exam: Positive for: normal inspection, pedal pulses present. Negative for: calf tenderness, pedal edema - Neurological Exam Neurological exam: Alert, CN II-XII Intact, Oriented x3 - Psychiatric Exam Psychiatric exam: Normal Affect, Normal Mood - Skin Skin Exam: Dry, Warm Discharge Plan - Follow Up Plan Condition: FAIR Disposition: HOME/ ROUTINE Instructions: Heart Healthy Diet, Heart Failure, Adult (DC), Angina (DC) Additional Instructions: The following instructions were explained to patient and copy will need to be provided to him upon discharge: 1). Please make sure that you follow up with your Primary Care Physician in the next couple of days to help coordinate your care and to go over your medications. 2). You stated that you had enough of your medications at home but could not provide any information concerning what they are. You also provided us with the address of your pharmacy located at [address] [place] [address] and this pharmacy was contacted but there was no answer despite 3 attempts. Therefore it is extremely important for you to follow up with your Primary Care Physician as mentioned above. Also as discussed with you, you should keep a written copy of your medications (dosage and the time when you take them) with you in your wallet at all times. 3). You may apply a bag of frozen vegatables or bag of ice to your left upper chest area for 30 minutes every 6 hours as needed for the muscle strain there. You may also use 500 mg of Tylenol by mouth every 6 hours as needed for the pain in this area. 4). You can perform a Google Search on the internet to find multiple websites that will provide you with instructions on how to perform stretches for your whole body. 5). Please take care and be well. Dieudonne Frankel D.O. Se le explicaron al paciente las siguientes instrucciones y se le deber proporcionar cari copia al momento del christiana: 1). Asegrese de hacer un seguimiento con carbajal mdico de atencin primaria en los prximos [place] para ayudar a coordinar carbajal atencin y repasar leesa medicamentos. 2). Usted indic que ya ten a suficientes medicamentos en casa, jose g no pudo proporcionar ninguna informaci n sobre lo que son. Tambin nos proporcion la direccin de carbajal farmacia ubicada en [address] [place] [address] y se contact a esta farmacia, jose g no hubo respuesta a pesar de 3 intentos. Por lo tanto, es extremadamente importante que cecilia un seguimiento con carbajal mdico de atencin primaria denzel se mencion anteriormente. Tambin denzel se discuti con usted, debe tener consigo cari copia escrita de leesa medicamentos (la dosis y el momento en que los melissa) con usted en carbajal billetera en todo momento. 3). Puede aplicar cari bolsa de vegetales congelados o cari bolsa de hielo en el mireya superior izquierda de carbajal pecho bebeto 30 minutos cada 6 horas, segn sea necesario para la distensin muscular. Tambin puede usar 500 mg de Tylenol por va oral cada 6 horas, segn sea necesario para el dolor en esta mireya. 4). Puede realizar cari Bsqueda de [employer] en Internet para encontrar varios sitios web que le proporcionarn instrucciones sobre senior qa analyst realizar estiramientos para todo carbajal cuerpo. 5). Por favor cudate y estate chris. Dieudonne Frankel D.O.
[2018-06-04] MEDS ORDERED: Pneumococcal 23-Valent Vaccine IM ONE (14:00)
== END 2018-06-02 15:00 | disposition home or self-care (01) ==
LOC: C.ER 18:40 → C.9E 20:54 → C.6T 21:23
PROVIDERS: ADMIT Internal Medicine; ATTEND Internal Medicine
DX: R07.89 Other chest pain (principal); E11.9 Type 2 diabetes mellitus without complications; I11.0 Hypertensive heart disease with heart failure; I42.9 Cardiomyopathy, unspecified; I48.91 Unspecified atrial fibrillation; I50.9 Heart failure, unspecified; J45.909 Unspecified asthma, uncomplicated; Z95.0 Presence of cardiac pacemaker; E78.00 Pure hypercholesterolemia, unspecified; Z95.810 Presence of automatic (implantable) cardiac defibrillator
CPT/HCPCS: 36415; 71045; 80048; 80053; 81001; 82948; 83880; 84484; 85025; 85610; 85730; 93005; 99284; G0378

== ENCOUNTER 2018-08-27 15:05 | Emergency (ER) | payer OTHER ==
[2018-08-27 15:08] VITALS: BMI 34.4
[2018-08-27 15:17] VITALS: BP 142/92; PULSE 98; RESP 18; TEMP 98.4; O2SAT 97
--- NOTE | 2018-08-27 16:32 | RAD ---
Date of service: 08/27/2018 PROCEDURE: Left Ankle Radiographs. HISTORY: Status post fall with pain COMPARISON: Comparison made with concurrent radiographs of the right foot FINDINGS: BONES: No evidence of acute displaced fracture nor dislocation. There are 2 or 3 tiny corticated round/elliptical shaped bony densities within the soft tissues adjacent to the inferior tip of the medial malleolus possibly representing some old posttraumatic mineralization sequela. There is also a similar smaller corticated density also noted in the soft tissues subjacent to the inferior tip of the lateral malleolus.. There are large posterior and smaller posterior calcaneal enthesophytes JOINTS: Normal. No osteoarthritis. Ankle mortise maintained. Talar dome intact SOFT TISSUES: Very mild lateral and to a lesser degree medial soft tissue swelling. OTHER FINDINGS: None. IMPRESSION: No evidence of acute displaced fracture nor dislocation. Small corticated density seen within the soft tissues subjacent to the medial and lateral malleoli possibly representing old posttraumatic mineralization. Minor soft tissue swelling as above.
--- NOTE | 2018-08-27 16:35 | RAD ---
Date of service: 08/27/2018 PROCEDURE: Left Foot Radiographs. HISTORY: PAIN COMPARISON: Correlation made with concurrent radiographs of the left ankle FINDINGS: BONES: Normal. No fracture. Redemonstrated are large posterior and slightly smaller plantar surface calcaneal enthesophytes. JOINTS: Minor degenerative osteoarthritis 1st MTP joint. There also mild degenerative changes of the bones of the midfoot most pronounced dorsally as seen on lateral view. SOFT TISSUES: Normal. OTHER FINDINGS: None. IMPRESSION: No acute fractures.
--- NOTE | 2018-08-27 16:37 | C.PDOC ---
History Of Present Illness 43 year old male presents to the ED for evaluation of left-sided knee, ankle and foot pain which began after patient sustained a fall three days ago. He is able to ambulate using a cane. Patient denies head injury, or extremity numbness/weakness. Time Seen by Provider: 08/27/18 15:27 Chief Complaint (Nursing): Lower Extremity Problem/Injury History Per: Patient History/Exam Limitations: no limitations Onset/Duration Of Symptoms: Days (3) Current Symptoms Are (Timing): Still Present Additional History Per: Patient - Ankle/Foot Description Of Injury: Fell Past Medical History Reviewed: Historical Data, Nursing Documentation, Vital Signs Vital Signs: Last Vital Signs Temp 98.4 F 08/27/18 15:09 Pulse 98 H 08/27/18 15:09 Resp 18 08/27/18 15:09 BP 142/92 H 08/27/18 15:09 Pulse Ox 97 08/27/18 15:09 - Medical History PMH: Asthma, Atrial Fibrillation, CHF, Diabetes, HTN, Hypercholesterolemia Denies: Chronic Kidney Disease Surgical History: Pacemaker (AICD) Family History: States: Unknown Family Hx - Social History Hx Tobacco Use: No Hx Alcohol Use: No Hx Substance Use: No - Immunization History Hx Tetanus Toxoid Vaccination: No Hx Influenza Vaccination: Yes Hx Pneumococcal Vaccination: No Review Of Systems Musculoskeletal: Positive for: Foot Pain (left), Other (left ankle, left knee ) Neurological: Negative for: Weakness, Numbness Physical Exam - Physical Exam Appears: Non-toxic, No Acute Distress Skin: Normal Color, Warm, Dry Extremity: Tenderness (over anterior aspect of left knee ), No Calf Tenderness, Capillary Refill (less than 2 seconds ), Swelling (mild to anterior aspect of left knee, left ankle and left foot ) Neurological/Psych: Oriented x3, Normal Speech, Normal Cognition, Normal Sensation Gait: With Assistance (cane) ED Course And Treatment O2 Sat by Pulse Oximetry: 97 (on RA) Pulse Ox Interpretation: Normal - Other Rad left foot XR X-Ray: Viewed By Me, Read By Radiologist Interpretation: Date of service: 08/27/2018. PROCEDURE: Left Foot Radiographs. HISTORY: PAIN. COMPARISON: Correlation made with concurrent radiographs of the left ankle. FINDINGS: BONES: Normal. No fracture. Redemonstrated are large posterior and slightly smaller plantar surface calcaneal enthesophytes. JOINTS: Minor degenerative osteoarthritis 1st MTP joint. There also mild degenerative changes of the bones of the midfoot most pronounced dorsally as seen on lateral view. SOFT TISSUES: Normal. OTHER FINDINGS: None. IMPRESSION: No acute fractures. left knee XR X-Ray: Viewed By Me, Read By Radiologist Interpretation: Date of service: 2018-08-27 15:53:22. PROCEDURE: Left Knee Radiographs. HISTORY: Pain. COMPARISON: Comparison made with radiographs left knee 11/26/2017. FINDINGS: BONES: No evidence of acute displaced fracture nor dislocation. JOINTS: Mild degenerative changes with small the posterior superior patella osteophyte formation with prominent anterior superior and anterior inferior lateral larger than former enthesophyte formation. There is also enthesophyte seen arising from the tibial tubercle. JOINT EFFUSION: Small suprapatellar joint effusion. OTHER FINDINGS: None. IMPRESSION: No acute fractures. Mild degenerative changes most notably affecting the patellofemoral compartment as described. Small suprapatellar joint effusion. left ankle XR X-Ray: Viewed By Me, Read By Radiologist Interpretation: Date of service: 08/27/2018. PROCEDURE: Left Ankle Radiographs. HISTORY: Status post fall with pain. COMPARISON: Comparison made with concurrent radiographs of the right foot. FINDINGS: BONES: No evidence of acute displaced fracture nor dislocation. There are 2 or 3 tiny corticated round/elliptical shaped bony densities within the soft tissues adjacent to the inferior tip of the medial malleolus possibly representing some old posttraumatic mineralization sequela. There is also a similar smaller corticated density also noted in the soft tissues subjacent to the inferior tip of the lateral malleolus.. There are large posterior and smaller posterior calcaneal enthesophytes. JOINTS: Normal. No osteoarthritis. Ankle mortise maintained. Talar dome intact. SOFT TISSUES: Very mild lateral and to a lesser degree medial soft tissue swelling. OTHER FINDINGS: None. IMPRESSION: No evidence of acute displaced fracture nor dislocation. Small corticated density seen within the soft tissues subjacent to the medial and lateral malleoli possibly representing old posttraumatic mineralization. Minor soft tissue swelling as above. Medical Decision Making Medical Decision Making: Impression: 43 year old male with left knee, ankle and foot pain after fall Plan: * left knee XR * left ankle XR * left foot XR * Toradol IM Progress: left knee, ankle and foot XR ordered and reviewed. Results are negative. Toradol IM given. On reassessment, patient is resting comfortably, showing no signs of distress and reports an improvement in his symptoms. Patient is stable for discharge and is advised to follow up with referred orthopedist within 1-2 days for further evaluation. Disposition Counseled Patient/Family Regarding: Diagnosis, Need For Followup, Rx Given - Disposition Referrals: Fazal Mohamud III, MD [Staff Provider] - Disposition: HOME/ ROUTINE Disposition Time: 16:36 Condition: STABLE Additional Instructions: Please apply ice to area 15 minutes three times a day. Take Motrin as needed for pain every 6 hours, with food to not upset stomach. Follow up with orthopedic if pain persists over one week. Prescriptions: Ibuprofen [Motrin] 600 mg PO Q8 #30 tab Instructions: Knee Pain (DC) Forms: [facility] (Spanish) - POA Present On Arrival: None - Clinical Impression Clinical Impression: Effusion of patella - PA / CHOIR DIRECTOR / Resident Statement MD/DO has reviewed & agrees with the documentation as recorded. - Scribe Statement The provider has reviewed the documentation as recorded by the Scribe (Regina Frankel) All medical record entries made by the Scribe were at my direction and personally dictated by me. I have reviewed the chart and agree that the record accurately reflects my personal performance of the history, physical exam, medical decision making, and the department course for this patient. I have also personally directed, reviewed, and agree with the discharge instructions and disposition.
== END 2018-08-27 16:54 | disposition home or self-care (01) ==
LOC: C.ER 15:05
DX: M25.462 Effusion, left knee (principal); I10 Essential (primary) hypertension
CPT/HCPCS: 73562; 73610; 73630; 96372; 99284; J1885

== ENCOUNTER 2018-09-19 21:17 | Emergency (ER) | payer OTHER ==
[2018-09-19 21:17] VITALS: BMI 34.4
[2018-09-19 21:39] VITALS: PULSE 76; RESP 20; TEMP 97.4; O2SAT 99
[2018-09-19] MEDS ORDERED: Lidocaine 5% Patch TD STA (22:01)
[2018-09-19] MEDS ORDERED: Lidocaine 5% Patch TD ONE (22:07)
[2018-09-19 22:59] VITALS: BP 145/78
--- NOTE | 2018-09-19 23:04 | C.PDOC ---
History Of Present Illness 53 year old male presents to the ER with a complaint of nonradiating left lower leg pain for the past week that has worsened today. Patient reports a Hx of back pain but has never seen a doctor for it. He has been taking advil with no relief. Denies weakness, numbness, dysuria, hematuria, or incontinence. Patient has a Hx of HTN and aicd, denies chest pain or SOB. Time Seen by Provider: 09/19/18 21:49 Chief Complaint (Nursing): Back Pain History Per: Patient History/Exam Limitations: no limitations Onset/Duration Of Symptoms: Days Current Symptoms Are (Timing): Still Present Previous Symptoms: Back Pain Associated Symptoms: None Recent travel outside of the [place]: No Past Medical History Reviewed: Historical Data, Nursing Documentation, Vital Signs Vital Signs: Last Vital Signs Temp 97.4 F L 09/19/18 21:33 Pulse 76 09/19/18 21:33 Resp 20 09/19/18 21:33 BP 145/78 09/19/18 22:58 Pulse Ox 99 09/19/18 21:33 - Medical History PMH: Asthma, Atrial Fibrillation, CHF, Diabetes, HTN, Hypercholesterolemia Denies: Chronic Kidney Disease Surgical History: Pacemaker (AICD) Family History: States: Unknown Family Hx - Social History Hx Tobacco Use: No Hx Alcohol Use: No Hx Substance Use: No - Immunization History Hx Tetanus Toxoid Vaccination: No Hx Influenza Vaccination: Yes Hx Pneumococcal Vaccination: No Review Of Systems Constitutional: Negative for: Fever, Chills Cardiovascular: Negative for: Chest Pain Respiratory: Negative for: Shortness of Breath Genitourinary: Negative for: Dysuria, Incontinence, Hematuria Musculoskeletal: Positive for: Back Pain Skin: Negative for: Rash Neurological: Negative for: Weakness, Numbness Physical Exam - Physical Exam Appears: Non-toxic Skin: Normal Color, Warm, Dry Head: Atraumatic, Normacephalic Eye(s): bilateral: Normal Inspection Oral Mucosa: Moist Chest: Symmetrical, No Tenderness Cardiovascular: Rhythm Regular Respiratory: Normal Breath Sounds, No Rales, No Rhonchi, No Wheezing Gastrointestinal/Abdominal: Soft, No Tenderness Back: No CVA Tenderness, No Vertebral Tenderness, No Paraspinal Tenderness Neurological/Psych: Oriented x3, Normal Speech, Normal Motor, Normal Sensation Gait: Steady ED Course And Treatment O2 Sat by Pulse Oximetry: 99 (Room air) Pulse Ox Interpretation: Normal Medical Decision Making Medical Decision Making: Flexeril and tylenol administered. Lidoderm patch applied. Patient reports improvement of pain, he is resting comfortably in the ER in no acute distress, vitals are stable, will discharge home with Rx and instructions to follow up with PMD. Disposition - Disposition Referrals: [facility] [Outside] Saeid Osorio MD [Non-Staff] - Disposition: HOME/ ROUTINE Disposition Time: 23:01 Condition: STABLE Additional Instructions: Follow up with the medical doctor within 1-2 days. return if worsened. Prescriptions: Acetaminophen [Tylenol] 325 mg PO Q6 PRN #30 tab PRN Reason: Pain, Mild (1-3) Cyclobenzaprine [Flexeril] 5 mg PO TID #21 tab Lidocaine 5% [Lidoderm] 1 each TP DAILY #10 patch Instructions: Low Back Pain in Adults Forms: [facility] (Greenlandic) - Clinical Impression Clinical Impression: Low back pain - PA / CRISIS SPECIALIST / Resident Statement MD/DO has reviewed & agrees with the documentation as recorded. - Scribe Statement The provider has reviewed the documentation as recorded by the Scribe Nehemiah Hardy All medical record entries made by the Scribalejo were at my direction and personally dictated by me. I have reviewed the chart and agree that the record accurately reflects my personal performance of the history, physical exam, medical decision making, and the department course for this patient. I have also personally directed, reviewed, and agree with the discharge instructions and di sposition.
== END 2018-09-19 23:10 | disposition home or self-care (01) ==
LOC: C.ER 21:17
DX: M54.5 Low back pain (principal); E11.9 Type 2 diabetes mellitus without complications; E78.00 Pure hypercholesterolemia, unspecified; I50.9 Heart failure, unspecified; I48.91 Unspecified atrial fibrillation; I10 Essential (primary) hypertension

== ENCOUNTER 2019-01-25 11:08 | Emergency (ER) | payer OTHER ==
[2019-01-25 11:17] VITALS: BMI 30.4
--- NOTE | 2019-01-25 13:34 | C.PDOC ---
History Of Present Illness 43 y/o male,w/PMhx of defibrillator, CHF, diabetes, and HTN, presents to the ER complaining of left ankle pain for the past few months. He states that the pain became worse when he twisted 1 week ago. Patient is also complaining of a bdominal pain for the past few weeks. He notes that he did not eat anything today.Currently, patient denies having abdominal pain, nausea, vomiting, fever,chills, weakness, and numbness in extremities. Time Seen by Provider: 01/25/19 11:22 Chief Complaint (Nursing): Abdominal Pain History Per: Patient History/Exam Limitations: no limitations Onset/Duration Of Symptoms: Days Current Symptoms Are (Timing): Still Present Severity: Moderate Past Medical History Reviewed: Historical Data, Nursing Documentation, Vital Signs Vital Signs: Last Vital Signs Temp 97.3 F L 01/25/19 11:17 Pulse 101 H 01/25/19 11:17 Resp 19 01/25/19 11:17 BP 127/93 H 01/25/19 11:17 Pulse Ox 96 01/25/19 11:17 Primary Care Provider: Nick Neal - Medical History PMH: Asthma, Atrial Fibrillation, CHF, Diabetes, HTN, Hypercholesterolemia Denies: Chronic Kidney Disease Surgical History: Pacemaker (AICD) Family History: States: No Known Family Hx - Social History Hx Tobacco Use: No Hx Alcohol Use: No Hx Substance Use: No - Immunization History Hx Tetanus Toxoid Vaccination: Yes Hx Influenza Vaccination: Yes Hx Pneumococcal Vaccination: Yes Review Of Systems Except As Marked, All Systems Reviewed And Found Negative. Constitutional: Negative for: Fever, Chills Gastrointestinal: Positive for: Abdominal Pain (currently resolved). Negative for: Nausea, Vomiting Musculoskeletal: Positive for: Other (left ankle pain) Neurological: Negative for: Weakness, Numbness Physical Exam - Physical Exam Appears: Non-toxic, No Acute Distress Skin: Normal Color, Warm, Dry Head: Atraumatic, Normacephalic Eye(s): bilateral: Normal Inspection Nose: Normal Oral Mucosa: Moist Neck: Supple Chest: Symmetrical Cardiovascular: Rhythm Regular Respiratory: Normal Breath Sounds, No Rales, No Rhonchi, No Wheezing Gastrointestinal/Abdominal: Normal Exam, Soft, No Tenderness, No Guarding, No Rebound Extremity: Normal ROM, Tenderness (tenderness to lateral and plantar aspect of left foot), No Swelling Neurological/Psych: Oriented x3, Normal Speech ED Course And Treatment - Laboratory Results Result Diagrams: 01/25/19 14:02 01/25/19 14:02 O2 Sat by Pulse Oximetry: 96 Disposition Counseled Patient/Family Regarding: Studies Performed, Diagnosis, Need For Followup, Rx Given - Disposition Disposition: HOME/ ROUTINE Disposition Time: 16:20 Condition: STABLE Additional Instructions: Rest, Ice, massage foot. Follow up with your doctor or the clinic. Prescriptions: Ibuprofen [Motrin] 600 mg PO TID #15 tab Instructions: Plantar Fasciitis Exercises Forms: [facility] (South Korean), Gen Discharge Inst South Korean - POA Present On Arrival: None - Clinical Impression Clinical Impression: Plantar fasciitis - Scribe Statement The provider has reviewed the documentation as recorded by the Angelibe Tom Herrera Provider Attestation: All medical record entries made by the Scribe were at my direction and personally dictated by me. I have reviewed the chart and agree that the record accurately reflects my personal performance of the history, physical exam, medical decision making, and the department course for this patient. I have also personally directed, reviewed, and agree with the discharge instructions and disposition.
[2019-01-25] MEDS ORDERED: Sodium Chloride 0.9% 500 ML IV ONE (13:43)
[2019-01-25 14:05] LABS: BASO # 0.1 K/uL (0.0-0.2); BASO % 0.8 % (0.0-2.0); EOS # 0.1 K/uL (0.0-0.7); EOS % 0.7 % (0.0-4.0); HEMOGLOBIN 15.1 g/dL (12.0-18.0); LYMPH # 1.9 K/uL (1.0-4.3); LYMPH % 17.6 % (20.0-40.0); MEAN CELL VOLUME 83.4 fL (80.0-94.0); MEAN CORPUSCULAR HEMOGLOBIN 28.6 pg (27.0-31.0); MEAN CORPUSCULAR HGB CONC 34.3 g/dL (33.0-37.0); MEAN PLATELET VOLUME 8.9 fL (7.2-11.7); MONO # 0.7 K/uL (0.0-0.8); MONO % 6.3 % (0.0-10.0); NEUT % 74.6 % (50.0-75.0); RBC 5.27 Mil/uL (4.40-5.90); RED CELL DISTRIBUTION WIDTH 15.2 % (11.5-14.5); WHITE BLOOD COUNT 10.7 K/uL (4.8-10.8)
[2019-01-25 14:17] LABS: ALB/GLOB RATIO 1.4 (1.0-2.1); ALBUMIN 4.7 g/dL (3.5-5.0); ALT/SGPT 20 U/L (21-72); AST/SGOT 26 U/L (17-59); BLOOD UREA NITROGEN 19 mg/dL (9-20); CALCIUM 9.1 mg/dl (8.6-10.4); GFR NON-AFRICAN AMERICAN > 60; LIPASE 79 U/L (23-300)
--- NOTE | 2019-01-25 15:02 | RAD ---
Date of service: 01/25/2019 PROCEDURE: Left Foot Radiographs. HISTORY: pain COMPARISON: 08/27/2018 TECHNIQUE: 3 views obtained. FINDINGS: BONES: Normal no fracture. Inferior calcaneal spur . . Multiple small os peroneum noted Prominent Chatsworth's tendon insertional enesthesophyte. JOINTS: Minimal 1st metatarsal-phalangeal joint arthrosis probable mild talonavicular arthrosis.. Trace tibiotalar arthrosis. Lateral midfoot and hindfoot level subcutaneous reticulated edema. SOFT TISSUES: Normal. OTHER FINDINGS: None. IMPRESSION: No fracture or lytic lesion. Other findings as above.
--- NOTE | 2019-01-25 15:04 | RAD ---
Date of service: 01/25/2019 HISTORY: abd pain COMPARISON: 12/05/2015 TECHNIQUE: 1 view obtained. FINDINGS: BOWEL: No bowel obstruction. Moderate stool retention. Probable redundancy of hepatic flexure. With stool more pronounced in appearance in 1 of these are redundant loops. BONES: Mild bilateral hip arthrosis. OTHER FINDINGS: None. IMPRESSION: Probable redundant right colon with extensive stool in 1 of these redundant right hepatic flexure loops.
[2019-01-25 15:55] VITALS: BP 121/78; PULSE 72; RESP 18; TEMP 97.2
[2019-01-25 16:22] VITALS: O2SAT 96
== END 2019-01-25 17:10 | disposition home or self-care (01) ==
LOC: C.ER 11:08
DX: M72.2 Plantar fascial fibromatosis (principal); E11.9 Type 2 diabetes mellitus without complications; I48.91 Unspecified atrial fibrillation; E78.00 Pure hypercholesterolemia, unspecified; I50.9 Heart failure, unspecified; I10 Essential (primary) hypertension; Z95.810 Presence of automatic (implantable) cardiac defibrillator
CPT/HCPCS: 73630; 74018; 80053; 83690; 85025; 96374; 99285; J1885; J7040